=== PATIENT | male | born 1940 | race Caucasian/White ===

== ENCOUNTER 2019-06-18 01:57 | Inpatient (IN) | payer MEDICARE ==
[2019-06-18 02:40] LABS: #Lymphocytes 0.6 thou/uL (1.20-3.40); #Neutrophils 9.4 thou/uL (1.40-6.50); %Basophils 0.1 % (0.0-1.0); %Eosinophils 0.2 % (0.0-10.0); %Lymphocytes 5.6 % (21.0-51.0); %Monocytes 9.2 % (0.0-10.0); %Neutrophils 84.8 % (42.0-75.0); Hemoglobin 11.1 g/dL (14.0-18.0); Mean Corpuscular HGB CONC 33.5 g/dL (32.0-36.0); Mean Corpuscular Hemoglobin 30.5 pg (27.0-31.0); Mean Corpuscular Volume 91.3 fL (78.0-98.0); Mean Platelet Volume 6.9 fL (7.4-10.4); Platelet Count 307 thou/uL (130-400); RBC Distribution Width 13.2 % (11.5-14.5); Red Blood Cell (RBC) Count 3.64 mill/uL (4.70-6.10)
[2019-06-18 03:01] LABS: ALT (SGPT) 26 U/L (8-55); AST (SGOT) 28 U/L (5-34); Albumin 3.5 g/dL (3.4-4.8); Alkaline Phosphatase 117 U/L (40-110); Anion Gap 14 mmol/L (10-20); BUN (Urea Nitrogen) 16 mg/dL (8.4-25.7); Calc. Creatinine Clearance 0 mL/min (70-130); Calcium 7.7 mg/dL (7.8-10.44); Carbon Dioxide 19 mmol/L (23-31); Chloride 105 mmol/L (98-107); Estimated GFR-MDRD 71; Globulin 2.5 g/dL (2.4-3.5); Glucose 114 mg/dL (83-110); Sodium 134 mmol/L (136-145)
[2019-06-18 03:23] LABS: CKMB 1.6 ng/mL (0-6.6)
[2019-06-18] MEDS ORDERED: Acetaminophen 325 MG TAB PO PRN (03:37)
[2019-06-18 04:18] LABS: INR-International Normal Ratio 2.1; Prothrombin Time 23.3 SEC (12.0-14.7)
[2019-06-18 04:41] LABS: Troponin I 0.057 ng/mL (< 0.028)
--- NOTE | 2019-06-18 05:57 | HP ---
CHIEF COMPLAINT: Shortness of breath. HISTORY OF PRESENT ILLNESS: Mr. Sainz is a 79-year-old male with past medical history of atrial fibrillation on warfarin, hypertension, hyperlipidemia, GERD, among others, presents to the emergency room with shortness of breath and generalized weakness. The patient has been feeling weak for the last week. Today, he started feeling short of breath. EMS reported the patient was in atrial fibrillation with RVR with low oxygen saturation. The patient is started on a Cardizem drip en route. The patient denies fever or chills. Heart rate was reported as high as in the 160s. Currently, heart rate is between 90 to the low 100s. BNP is 185. Troponin 0.04. The patient denies chest pain. The patient is being admitted to the hospital for further management. PAST MEDICAL HISTORY: As mentioned above in the history of present illness. PAST SURGICAL HISTORY: 1. Tonsillectomy. 2. Hernia repair. 3. Hip replacement. SOCIAL HISTORY: Patient drinks socially. Has no smoking history. FAMILY HISTORY: Reviewed and noncontributory. HOME MEDICATIONS: Please see home medication reconciliation form for updated medications. ALLERGIES: NO KNOWN ALLERGIES. REVIEW OF SYSTEMS: Review of 14 systems negative except what is mentioned in the history of present illness. PHYSICAL EXAMINATION: GENERAL: The patient is awake, alert, does not appear to be in acute distress. VITAL SIGNS: Blood pressure is 113/69, pulse is 105, respiratory rate is 22, oxygen saturations 96% on 2 L/minute nasal cannula, temperature is 99.6. HEAD AND NECK: Normocephalic, atraumatic. Neck is supple. No JVD. CHEST: Fair bilateral entry. HEART: Irregularly irregular. ABDOMEN: Soft, nontender. Bowel sounds present. NEUROLOGIC: Awake, alert, oriented x3. PSYCHIATRY: Normal mood. EXTREMITIES: No clubbing, no cyanosis. GENITOURINARY: No suprapubic tenderness. No flank tenderness. LABORATORY DATA: Troponin 0.04. BNP is 285. Sodium is 134, potassium is 4.0, creatinine is 1.0. WBC is 11, hemoglobin 11.1, platelets 307. ASSESSMENT: 1. Atrial fibrillation with rapid ventricular response. 2. Acute shortness of breath. 3. Anticoagulated on warfarin. 4. Hypertension. 5. Hyperlipidemia. PLAN: 1. Admit. 2. Telemetry monitoring. 3. 2D echo. 4. Serial troponins. 5. Continue with IV diltiazem drip. 6. Consult Cardiology in a.m. for evaluation and further recommendations. 7. Continue home anticoagulant, will check the patient's INR, to follow the results. 8. Reconcile home medications. 9. DVT prophylaxis as appropriate. 10. Expected length of stay 2 midnights or more. Job ID: [id number]
[2019-06-18 06:03] VITALS: BMI 32.5
[2019-06-18] MEDS ORDERED: HYDROcodone/Acetaminophen 10/325 mg Tablet PO PRN ×2 (07:13→12:45)
[2019-06-18 07:30] LABS: Troponin I 0.101 ng/mL (< 0.028)
[2019-06-18] MEDS ORDERED: Enoxaparin Sodium 100 MG/ML SYRINGE SC SCH (09:00)
[2019-06-18] MEDS ORDERED: Aspirin 325 mg Enteric Coated Tablet PO SCH (09:00)
[2019-06-18] MEDS ORDERED: Amlodipine 5 MG TAB PO SCH (09:00)
[2019-06-18] MEDS ORDERED: Enoxaparin Sodium 80 MG/0.8 ML SYRINGE SC SCH (09:00)
--- NOTE | 2019-06-18 09:15 | RAD ---
Chest one view HISTORY: Dyspnea. COMPARISON: 05/27/2019. FINDINGS: Cardiac silhouette is magnified and enlarged. Pulmonary vasculature is now engorged with pr ominent widespread reticulonodular interstitial thickening. Blunting of each costophrenic angle. Mediastinum is rotated leftward with the patient. No lobar consolidation or evidence of pneumothorax. Defibrillator patch overlies the right upper ches t. IMPRESSION: Pulmonary vascular congestion, cardiomegaly, and small bilateral pleural effusions. Consi mary CHF.
[2019-06-18] MEDS: Atorvastatin Calcium 20 MG TAB PO SCH (09:28)
[2019-06-18] MEDS: Famotidine/PF 20 mg/2ml Vial SLOW IVP SCH ×2 (09:28→19:56)
--- NOTE | 2019-06-18 12:15 | PDOC.HOSPP ---
- Subjective Encounter Date: 06/18/19 Encounter Time: 09:00 Subjective: no c/o chest pain or palpitations at rest has sob on min exertion - Objective Vital Signs & Weight: Vital Signs (12 hours) Temp Pulse Resp BP BP Pulse Ox 06/18/19 09:28 92 144/72 H 06/18/19 08:00 97.6 F 92 20 144/72 H 97 06/18/19 06:51 98 137/58 L 144/70 H 06/18/19 05:55 98.6 F 77 19 137/58 L 97 Weight Weight 220 lb I&O: 06/17/19 06/18/19 06/19/19 06:59 06:59 06:59 Intake Total 130 Output Total 800 Balance -670 Result Diagrams: 06/18/19 02:31 06/18/19 02:31 Hospitalist ROS - Medication Medications: Active Medications Generic Name Dose Route Start Last Admin Trade Name Freq PRN Reason Stop Dose Admin Amlodipine Besylate 5 mg 06/18/19 09:00 06/18/19 09:28 Norvasc PO 5 mg DAILY PAL Administration Atorvastatin Calcium 20 mg 06/18/19 09:00 06/18/19 09:28 Lipitor PO 20 mg DAILY PAL Administration Famotidine 20 mg 06/18/19 09:00 06/18/19 09:28 Pepcid SLOW IVP 20 mg Q12HR PAL Administration Metoprolol Succinate 100 mg 06/18/19 09:00 06/18/19 09:28 Toprol Xl PO 100 mg DAILY PAL Administration Pantoprazole Sodium 40 mg 06/18/19 09:00 06/18/19 09:28 Protonix PO 40 mg DAILY PAL Administration Sodium Chloride 10 ml 06/18/19 09:00 06/18/19 09:28 Flush - Normal Saline IVF 10 ml Q12HR PAL Administration - Exam General Appearance: awake alert Eye: PERRL, anicteric sclera ENT: no oropharyngeal lesions, moist mucosa Neck: supple, no JVD Heart: no murmur, irregular Respiratory: no wheezes, no ronchi, rales Gastrointestinal: soft, non-tender, non-distended, normal bowel sounds Extremities: no cyanosis, no edema Neurological: cranial nerve grossly intact, no focal deficits Psychiatric: normal affect, A&O x 3 Hosp A/P (1) Atrial fibrillation with RVR Code(s): I48.91 - UNSPECIFIED ATRIAL FIBRILLATION Status: Acute (2) HTN (hypertension) Code(s): I10 - ESSENTIAL (PRIMARY) HYPERTENSION Status: Chronic Qualifiers: Hypertension type: essential hypertension Qualified Code(s): I10 - Essential (primary) hypertension (3) Dyslipidemia Code(s): E78.5 - HYPERLIPIDEMIA, UNSPECIFIED Status: Chronic - Plan has chronic h/o afib and sees Dr.Jeremiah Lora in [place] per patient last stress test was in october of 2018 and was normal per patient is currently on cardizem drip continue home dose toprol xl, norvasc and lipitor echo is pending hemostable cardiology consultation
[2019-06-18] MEDS: HYDROcodone/Acetaminophen 10/325 mg Tablet PO PRN (12:35)
[2019-06-18] MEDS: Warfarin Sodium 3 MG TAB PO SCH (17:27)
[2019-06-18] MEDS ORDERED: Furosemide 40 MG/4 ML VIAL ONE (19:44)
[2019-06-18] MEDS: traZODone HCl 50 MG TAB PO PRN (19:55)
[2019-06-19] MEDS: HYDROcodone/Acetaminophen 10/325 mg Tablet PO PRN (03:45)
[2019-06-19 04:41] LABS: #Eosinphils 0.1 thou/uL (0.0-0.7); #Monocytes 1.2 thou/uL (0.11-0.59); #Neutrophils 8.7 thou/uL (1.40-6.50); %Basophils 0.1 % (0.0-1.0); %Eosinophils 0.8 % (0.0-10.0); %Lymphocytes 9.3 % (21.0-51.0); %Monocytes 11.2 % (0.0-10.0); %Neutrophils 78.6 % (42.0-75.0); Mean Corpuscular Hemoglobin 30.7 pg (27.0-31.0); Mean Corpuscular Volume 92.9 fL (78.0-98.0); Mean Platelet Volume 7.2 fL (7.4-10.4); Platelet Count 321 thou/uL (130-400); RBC Distribution Width 13.2 % (11.5-14.5); Red Blood Cell (RBC) Count 3.58 mill/uL (4.70-6.10); White Blood Cell (WBC) Count 11.1 thou/uL (4.8-10.8)
[2019-06-19 04:46] LABS: INR-International Normal Ratio 1.7; Prothrombin Time 20.1 SEC (12.0-14.7)
[2019-06-19 05:02] LABS: Anion Gap 14 mmol/L (10-20); BUN (Urea Nitrogen) 14 mg/dL (8.4-25.7); Calc. Creatinine Clearance 103 mL/min (70-130); Calcium 8.3 mg/dL (7.8-10.44); Carbon Dioxide 20 mmol/L (23-31); Chloride 103 mmol/L (98-107); Estimated GFR-MDRD 87; Glucose 113 mg/dL (83-110); Potassium 3.7 mmol/L (3.5-5.1); Sodium 133 mmol/L (136-145)
[2019-06-19] MEDS: Atorvastatin Calcium 20 MG TAB PO SCH (09:19)
[2019-06-19] MEDS: Aspirin 81 mg Enteric Coated Tablet PO SCH (09:26)
[2019-06-19] MEDS ORDERED: Magnesium 2 GM/50 ML 2 GM in Premix Bag 1 BAG IVPB SCH (11:30)
--- NOTE | 2019-06-19 13:57 | PRG ---
DATE OF SERVICE: 06/19/2019 SUBJECTIVE: Mr. Sainz is doing better. His heart rate appears to be better controlled. He is on 5 mg of IV Cardizem. He is placed on p.o. Cardizem yesterday in addition of metoprolol. OBJECTIVE: GENERAL: Patient is a pleasant male who is in no acute distress. The patient appears their stated age. VITAL SIGNS: Heart rate 99, blood pressure 144/76, and respirations 20. NEUROLOGIC: The patient is alert and oriented x3 with no focal neurologic deficits. HEENT: Sclerae without icterus. Mouth has moist mucous membranes with normal pallor. NECK: No JVD. Carotid upstroke brisk. No bruits bilaterally. LUNGS: Clear to auscultation with unlabored respirations. BACK: No scoliosis or kyphosis. CARDIAC: Irregularly irregular. ABDOMEN: Soft, nontender, nondistended. No peritoneal signs present. No hepatosplenomegaly. No abnormal striae. EXTREMITIES: 2+ femoral and 2+ dorsalis pedis pulses. No cyanosis, clubbing, or edema. SKIN: No gross abnormalities. PERTINENT LABS: As above. IMPRESSION: 1. Atrial fibrillation with rapid ventricular response. 2. Ewzasort-tk-hjlxvf mitral regurgitation. RECOMMENDATIONS: 1. After reviewing Mr. Sainz' previous records, he appears to have mild MR previously. This is likely due to volume. He will receive Lasix. He appears to have urriccxw-is-vlmfef MR on recent echo. His left atrium appears enlarged. 2. At this point, we will continue with rate control. We will increase p.o. Cardizem to try and decrease IV Cardizem. Given his left atrial size and the fact he has been atrial fibrillation for years, it is unlikely cardioversion be successful. We will continue to monitor with you. Job ID: [id number]
--- NOTE | 2019-06-19 14:09 | CON ---
DATE OF CONSULTATION: 06/18/2019 REASON FOR CONSULTATION: Atrial fibrillation. HISTORY OF PRESENT ILLNESS: Mr. Sainz is a very pleasant 79-year-old gentleman, who recently presented with atrial fibrillation with RVR. He also was found to be in congestive heart failure. He had a full workup at the [facility]. Records have been reviewed. He has bvfm-hc-ilokhvps coronary artery disease. Most risk significant lesion estimated at 60% within the LAD. FFR was estimated at 0.85. He states he has had increased palpitations. He states his beta-tigre was recently changed and attributes the change in beta-tigre therapy to his device. No chest pain or pressure noted. PAST MEDICAL HISTORY: As above including tonsillectomy, hip replacement, and hernia repair. SOCIAL HISTORY: Positive alcohol use. No tobacco use. ALLERGIES: NONE. REVIEW OF SYSTEMS: A 10-point review of systems is reviewed as above, otherwise negative. HOME MEDICATIONS: Include; 1. Norvasc. 2. Omeprazole. 3. Metoprolol. 4. Coumadin. 5. Atorvastatin. 6. Hydrocodone. 7. Trazodone. PHYSICAL EXAMINATION: VITAL SIGNS: Current blood pressure 112/59, pulse 91, and respirations 20. GENERAL: The patient is a pleasant gentleman, in no acute distress, appears stated age. HEAD, EYES, EARS, NOSE AND THROAT: Sclerae without icterus. Mouth: Moist mucous membranes, normal palate. NECK: No jugular venous distention. Carotid upstroke is brisk. No bruits bilaterally. LUNGS: Clear to auscultation. HEART: Irregularly irregular. ABDOMEN: Soft, nontender, nondistended. EXTREMITIES: No edema. PERTINENT LABORATORY DATA: Hemoglobin 11, hematocrit 33.3, white blood cell count 11.1, and creatinine 0.5. BNP of 285. IMPRESSION: 1. Atrial fibrillation with rapid ventricular response. 2. Ugtg-af-mdrgfntw coronary artery disease with angio performed on 05/2019. RECOMMENDATIONS: 1. I have added Cardizem p.o. q.8 hours in addition to IV Cardizem. 2. Add digoxin. 3. Continue aspirin in addition to atorvastatin. 4. Discontinue enoxaparin. 5. Continue metoprolol. Job ID: [id number]
--- NOTE | 2019-06-19 16:59 | PDOC.HOSPP ---
- Subjective Encounter Date: 06/19/19 Encounter Time: 14:00 Subjective: Patient seen and examined for Afib with RVR. SOB on mild exertion. No CP. No new complaints. No overnight events - Objective Vital Signs & Weight: Vital Signs (12 hours) Temp Pulse Resp BP Pulse Ox 06/19/19 16:00 99.5 F 86 18 114/65 93 L 06/19/19 12:00 98.1 F 94 15 126/67 94 L 06/19/19 08:00 98.2 F 100 16 122/65 92 L Weight Weight 220 lb I&O: 06/18/19 06/19/19 06/20/19 06:59 06:59 06:59 Intake Total 860 Output Total 2150 Balance -1290 Result Diagrams: 06/19/19 04:15 06/19/19 04:15 Radiology Reviewed by me: Yes (CXR - CHF) EKG Reviewed by me: Yes (Tele Afib with RVR) Hospitalist ROS - Review of Systems Respiratory: reports: cough, dry, shortness of breath, SOB with excertion. denies: hemoptysis, pleuritic pain, sputum, wheezing, other Cardiovascular: denies: chest pain, palpitations, orthopnea, paroxysmal noc. dyspnea, edema, light headedness, other Gastrointestinal: denies: nausea, vomiting, abdominal pain, diarrhea, constipation, melena, hematochezia, other - Medication Medications: Active Medications Generic Name Dose Route Start Last Admin Trade Name Freq PRN Reason Stop Dose Admin Hydrocodone Bitart/Acetaminophen 1 tab 06/18/19 12:33 06/19/19 03:45 [place] 10/325 PO 1 tab BIDPRN PRN Administration Pain Aspirin 81 mg 06/19/19 09:00 06/19/19 09:26 Ecotrin PO 81 mg DAILY PAL Administration Atorvastatin Calcium 20 mg 06/18/19 09:00 06/19/19 09:19 Lipitor PO 20 mg DAILY PAL Administration Diltiazem HCl 90 mg 06/19/19 14:00 06/19/19 14:27 Cardizem PO 90 mg Q8HR PAL Administration Metoprolol Succinate 100 mg 06/18/19 09:00 06/19/19 09:19 Toprol Xl PO 100 mg DAILY PAL Administration Pantoprazole Sodium 40 mg 06/18/19 09:00 06/19/19 09:19 Protonix PO 40 mg DAILY PAL Administration Sodium Chloride 10 ml 06/18/19 09:00 06/19/19 09:20 Flush - Normal Saline IVF 10 ml Q12HR PAL Administration Trazodone HCl 100 mg 06/18/19 19:41 06/18/19 19:55 Desyrel PO 100 mg HS PRN Administration Insomnia Warfarin Sodium 6 mg 06/18/19 17:00 06/18/19 17:27 Coumadin PO 6 mg 1700 PAL Administration - Exam General Appearance: NAD Heart: no gallops, no rubs, normal peripheral pulses, irregular Respiratory: no wheezes, no rales, normal chest expansion, rhonchi Gastrointestinal: non-tender, non-distended, normal bowel sounds, no guarding, no rigidity Neurological: no new deficit Psychiatric: normal affect, A&O x 3 Hosp A/P - Plan DVT proph w/SCDs Afib with RVR Acute on chronic diastolic HF 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 DPOA - self/family
[2019-06-19] MEDS ORDERED: Furosemide 20 MG/2 ML VIAL SLOW IVP SCH (17:00)
[2019-06-19] MEDS: Warfarin Sodium 3 MG TAB PO SCH (17:37)
[2019-06-19] MEDS: traZODone HCl 50 MG TAB PO PRN (20:42)
[2019-06-20] MEDS: HYDROcodone/Acetaminophen 10/325 mg Tablet PO PRN (01:25)
[2019-06-20 04:32] LABS: INR-International Normal Ratio 2.2; Prothrombin Time 24.3 SEC (12.0-14.7)
[2019-06-20] MEDS: Furosemide 20 MG/2 ML VIAL SLOW IVP SCH ×2 (06:06→14:25)
[2019-06-20 06:46] LABS: #Basophils 0.1 thou/uL (0.0-0.2); #Eosinphils 0.2 thou/uL (0.0-0.7); #Lymphocytes 0.9 thou/uL (1.20-3.40); #Neutrophils 7.4 thou/uL (1.40-6.50); %Basophils 0.6 % (0.0-1.0); %Eosinophils 2.4 % (0.0-10.0); %Lymphocytes 9.5 % (21.0-51.0); %Monocytes 10.6 % (0.0-10.0); %Neutrophils 76.8 % (42.0-75.0); Hemoglobin 10.8 g/dL (14.0-18.0); Mean Corpuscular HGB CONC 32.7 g/dL (32.0-36.0); Mean Corpuscular Hemoglobin 30.8 pg (27.0-31.0); Mean Corpuscular Volume 94.3 fL (78.0-98.0); Mean Platelet Volume 7.2 fL (7.4-10.4); Platelet Count 297 thou/uL (130-400); RBC Distribution Width 13.4 % (11.5-14.5); Red Blood Cell (RBC) Count 3.49 mill/uL (4.70-6.10); White Blood Cell (WBC) Count 9.6 thou/uL (4.8-10.8)
[2019-06-20 06:54] LABS: Anion Gap 12 mmol/L (10-20); BUN (Urea Nitrogen) 13 mg/dL (8.4-25.7); Calc. Creatinine Clearance 112 mL/min (70-130); Calcium 8.1 mg/dL (7.8-10.44); Carbon Dioxide 22 mmol/L (23-31); Chloride 104 mmol/L (98-107); Estimated GFR-MDRD Greater than 90; Glucose 105 mg/dL (83-110); Magnesium 2.3 mg/dL (1.6-2.6); Potassium 3.4 mmol/L (3.5-5.1); Sodium 135 mmol/L (136-145)
[2019-06-20] MEDS ORDERED: Potassium Chloride 20 MEQ TAB PO SCH ×3 (08:00→21:00)
[2019-06-20] MEDS: Atorvastatin Calcium 20 MG TAB PO SCH (09:40)
[2019-06-20] MEDS: Aspirin 81 mg Enteric Coated Tablet PO SCH (09:40)
[2019-06-20] MEDS: Diltiazem HCl 125 MG, Admixture Fee 1 EACH in Sodium Chloride 0.9% 100 ML IVPB SCH (12:01)
[2019-06-20] MEDS: Warfarin Sodium 3 MG TAB PO SCH (17:51)
--- NOTE | 2019-06-20 18:17 | PRG ---
DATE OF SERVICE: 06/20/2019 HISTORY OF PRESENT ILLNESS: Mr. Sainz feels better. Less shortness of breath. Heart rate continues to be elevated, although better. He continues to be on IV Cardizem. PHYSICAL EXAMINATION: VITAL SIGNS: Blood pressure 100/57, pulse 93, and temperature 98.6. LUNGS: Clear to auscultation. HEART: Irregularly irregular. ABDOMEN: Soft, nontender, and nondistended. EXTREMITIES: No edema. PERTINENT LABORATORY DATA: Hemoglobin 8.6. Creatinine 0.78. IMPRESSION: 1. Atrial fibrillation. 2. Yiboxyge-jt-tibfzg mitral regurgitation. 3. Mild aortic stenosis. RECOMMENDATIONS: Mr. Sainz atrial fibrillation is chronic. We will continue to up-titrate his p.o. Cardizem. I have increased his Cardizem to 90 mg one p.o. q.6 hours. We will also load with digoxin. Continue metoprolol at the current dose and can increase if needed. If continued difficulty with management, may consider EP consultation. Part of the issue as far as atrial fibrillation is concerned is his valve. He may need to have a more aggressive approach to his valve such as a mitral valve replacement versus clip versus repair. Job ID: [id number]
[2019-06-20] MEDS: Digoxin 0.25 MG TAB PO SCH (18:20)
--- NOTE | 2019-06-20 18:39 | PDOC.HOSPP ---
- Subjective Encounter Date: 06/20/19 Encounter Time: 17:00 Subjective: Patient seen and examined for Afib with RVR. No CP. On Cardizem drip SOB improving. No new complaints. No overnight events - Objective Vital Signs & Weight: Vital Signs (12 hours) Temp Pulse Resp BP Pulse Ox 06/20/19 18:20 83 06/20/19 16:10 98.6 F 93 18 100/57 L 90 L 06/20/19 16:00 98.6 F 93 16 100/57 L 96 06/20/19 14:04 98.3 F 101 H 18 132/61 97 06/20/19 12:00 98.3 F 101 H 16 132/61 97 06/20/19 08:00 98.9 F 95 16 120/65 94 L Weight Weight 220 lb I&O: 06/19/19 06/20/19 06/21/19 06:59 06:59 06:59 Intake Total 860 1090 Output Total 2150 950 800 Balance -1290 140 -800 Result Diagrams: 06/20/19 06:13 06/20/19 06:13 EKG Reviewed by me: Yes (Tele Afib - rate controlled) Hospitalist ROS - Review of Systems Respiratory: reports: SOB with excertion. denies: cough, dry, shortness of breath, hemoptysis, pleuritic pain, sputum, wheezing, other Cardiovascular: denies: chest pain, palpitations, orthopnea, paroxysmal noc. dyspnea, edema, light headedness, other Gastrointestinal: denies: nausea, vomiting, abdominal pain, diarrhea, constipation, melena, hematochezia, other - Medication Medications: Active Medications Generic Name Dose Route Start Last Admin Trade Name Freq PRN Reason Stop Dose Admin Hydrocodone Bitart/Acetaminophen 1 tab 06/18/19 12:33 06/20/19 01:25 [place] 10/325 PO 1 tab BIDPRN PRN Administration Pain Aspirin 81 mg 06/19/19 09:00 06/20/19 09:40 Ecotrin PO 81 mg DAILY PAL Administration Atorvastatin Calcium 20 mg 06/18/19 09:00 06/20/19 09:40 Lipitor PO 20 mg DAILY PAL Administration Digoxin 0.25 mg 06/20/19 18:00 06/20/19 18:20 Lanoxin PO 06/21/19 12:01 0.25 mg Q6HR PAL Administration Diltiazem HCl 90 mg 06/20/19 18:00 06/20/19 18:20 Cardizem PO 90 mg Q6HR PAL Administration Furosemide 20 mg 06/20/19 06:00 06/20/19 14:25 Lasix SLOW IVP 20 mg 0600,1400 PAL Administration Diltiazem HCl 125 mg/ 125 mls @ 5 mls/hr 06/18/19 02:30 06/20/19 12:01 Miscellaneous Medication 1 IVPB 125 mls each/ Sodium Chloride INF PAL Administration Protocol Metoprolol Succinate 100 mg 06/18/19 09:00 06/20/19 09:40 Toprol Xl PO 100 mg DAILY PAL Administration Pantoprazole Sodium 40 mg 06/18/19 09:00 06/20/19 09:40 Protonix PO 40 mg DAILY PAL Administration Sodium Chloride 10 ml 06/18/19 09:00 06/20/19 09:40 Flush - Normal Saline IVF 10 ml Q12HR PAL Administration Trazodone HCl 100 mg 06/18/19 19:41 06/19/19 20:42 Desyrel PO 100 mg HS PRN Administration Insomnia Warfarin Sodium 6 mg 06/18/19 17:00 06/20/19 17:51 Coumadin PO 6 mg 1700 PAL Administration - Exam General Appearance: NAD General - other findings: On Cardizem drip Heart: no gallops, no rubs, irregular Respiratory: no wheezes, no rales, rhonchi Gastrointestinal: non-tender, non-distended, normal bowel sounds Extremities: no cyanosis, no clubbing Psychiatric: normal affect, A&O x 3 Hosp A/P - Plan Afib with RVR - on Cardizem drip/Digoxin Acute on chronic diastolic HF - improving Mod-sev MR HTN HLD Obesity BMI 32.5 Hypokalemia Hypomagnesemia - replaced PLAN: Cont Cardizem drip with PO Cardizem Cont IV Lasix with fluid rest Replace Potassium Cont Warfarin Daily INR/BMP Cont other meds Transfer to [facility] due to insurance reason - Forms completed. Bed not available
[2019-06-20] MEDS: traZODone HCl 50 MG TAB PO PRN (19:57)
[2019-06-21] MEDS: Digoxin 0.25 MG TAB PO SCH ×3 (00:17→12:49)
[2019-06-21] MEDS: HYDROcodone/Acetaminophen 10/325 mg Tablet PO PRN (00:19)
[2019-06-21 04:40] LABS: INR-International Normal Ratio 2.2; Prothrombin Time 23.9 SEC (12.0-14.7)
[2019-06-21 04:57] LABS: Anion Gap 13 mmol/L (10-20); BUN (Urea Nitrogen) 15 mg/dL (8.4-25.7); Calc. Creatinine Clearance 100 mL/min (70-130); Carbon Dioxide 21 mmol/L (23-31); Chloride 103 mmol/L (98-107); Estimated GFR-MDRD 85; Glucose 98 mg/dL (83-110); Magnesium 1.9 mg/dL (1.6-2.6); Potassium 3.5 mmol/L (3.5-5.1); Sodium 133 mmol/L (136-145)
[2019-06-21] MEDS: Furosemide 20 MG/2 ML VIAL SLOW IVP SCH ×2 (05:48→14:10)
[2019-06-21] MEDS: Aspirin 81 mg Enteric Coated Tablet PO SCH (09:20)
[2019-06-21] MEDS: Atorvastatin Calcium 20 MG TAB PO SCH (09:21)
[2019-06-21] MEDS: Diltiazem HCl 125 MG, Admixture Fee 1 EACH in Sodium Chloride 0.9% 100 ML IVPB SCH (12:53)
[2019-06-21] MEDS ORDERED: Potassium Chloride 20 MEQ TAB PO SCH (16:00)
[2019-06-21 16:09] VITALS: BP 113/72; TEMP 98.9
[2019-06-21] MEDS: Warfarin Sodium 3 MG TAB PO SCH (17:55)
--- NOTE | 2019-06-22 06:13 | PDOC.CPN ---
- Subjective Date: 06/21/19 Time: 16:10 Interval history: Patient without complaints. AF with improved rate-control, but still intermittent RVR. - Review of Systems General: denies: fever/chills, weight/appetite/sleep changes, night sweats, fatigue Respiratory: denies: cough, congestion, shortness of breath, exercise intolerance Cardiovascular: denies: chest pain, palpitation, edema, paroxysmal nocturnal dyspnea, orthopnea Gastrointestinal: denies: nausea, vomiting, diarrhea, constipation, abd pain, GI bleeding Musculoskeletal: denies: pain, tenderness, stiffness, swelling, arthritis/ arthralgias Neurological: denies: numbness, syncope, seizure, weakness - Objective Allergies/Adverse Reactions: Allergies Allergy/AdvReac Type Severity Reaction Status Date / Time No Known Drug Allergies Allergy Verified 06/18/19 06:23 Vital Signs & Weight: Weight 212 lb 12.8 oz - Physical Exam General: alert & oriented x3, appears well, no apparent distress HEENT: mucus membranes moist Neck: supple neck Cardiac: other (IRR IRR) Lungs: clear to auscultation, normal breath sounds Neuro: grossly intact Abdomen: soft, non-tender Extremities: no cyanosis Musculoskeletal: normal range of motion - Labs Result Diagrams: 06/20/19 06:13 06/21/19 04:19 Troponin/CKMB CK-MB (CK-2) 1.6 ng/mL (0-6.6) 06/18/19 02:31 Troponin I 0.101 ng/mL (< 0.028) H 06/18/19 06:41 - Assessment/Plan Assessment/Plan: 1. Persistent AF Still with intermittent RVR. On cardizem gtt at 5. PO cardizem and Toprol on board. Patient started on Digoxin in last 48 hours. Will add Dig 0.125mg once daily starting tomorrow. Hopefully home soon.
--- NOTE | 2019-06-22 08:00 | DIS ---
DATE OF ADMISSION: 06/18/2019 DATE OF DISCHARGE: 06/21/2019 DISCHARGE DISPOSITION: The patient will be transferred to [facility] due to insurance reason. DISCHARGE MEDICATIONS: 1. Cardizem drip at 5 mg/hour. 2. Cardizem 90 mg q.6 hourly. 3. Aspirin 81 mg daily. 4. Digoxin 0.125 mg daily. 5. Lasix 20 mg daily. 6. Potassium 20 mEq daily. 7. Warfarin 6 mg daily. 8. Trazodone 100 mg at bedtime p.r.n. 9. Omeprazole 40 mg daily. 10. Toprol-XL 100 mg daily. 11. [place] as needed. 12. Lipitor 20 mg daily. INPATIENT CONSULT: Cardiology, Dr. Ashton. The patient was seen and examined on the day of discharge (June,). His vital signs today showed temperature 98.2, pulse rate of 84, respirations of 18, blood pressure of 124/64, O2 saturation 98% on room air. Weight on the day of discharge is 212 pounds, on admission was 220 pounds. SIGNIFICANT LABORATORY DATA: Sodium 133, potassium 3.5, chloride 103, bicarb 21, BUN 15, and creatinine 0.87. Maximum troponin was 0.101. BNP was 285. Chest x-ray on admission showed pulmonary vascular congestion, cardiomegaly with small bilateral pleural effusion. Echocardiogram showed left ventricular ejection fraction of 50% to 55% with lzngfhmt-xv-elsghj mitral regurgitation, xtkz-ys-bguoxgln aortic regurgitation, atdi-re-csbzbodn tricuspid regurgitation, mildly elevated pulmonary artery pressure. There was also moderately thickened aortic valve. Please note that the patient recently had an echo at [facility] that showed ejection fraction around 43%. BRIEF HOSPITAL COURSE: The patient is a 79-year-old male with past medical history of atrial fibrillation on warfarin, hypertension, hyperlipidemia, presented to the emergency room with shortness of breath. His workup was consistent with atrial fibrillation with rapid ventricular response along with congestive heart failure exacerbation. He was started on Cardizem drip along with gentle diuretics. Shortness of breath has significantly improved. His heart rate is controlled at this time. He still, however, is on Cardizem drip. He was evaluated by Cardiology, Dr. Ashton, who started digoxin along with oral Cardizem 90 mg q.6 hourly. Lasix has been changed to oral. He also had some electrolyte imbalance, which were replaced. Due to insurance reason, the patient will be transferred to [facility]. FINAL DIAGNOSES: 1. Atrial fibrillation with rapid ventricular response. 2. Acute on chronic diastolic heart failure. Please note that recent echo at [facility] showed ejection fraction 43%. 3. Ytuwdzvb-sy-dtlyip mitral regurgitation. 4. Hypertension. 5. Hyperlipidemia. 6. Obesity with a BMI of 32.5. 7. Hypokalemia, replaced. 8. Hypomagnesemia, replaced. 9. Hyponatremia. 10. Mild aortic stenosis. 11. Chronic anticoagulation. INR on the day of discharge is 2.2. The patient understands the above plan of care. Job ID: [id number]
[2019-06-22] MEDS ORDERED: Furosemide 20 MG TAB PO SCH (09:00)
[2019-06-22] MEDS ORDERED: Digoxin 0.125 MG TAB PO SCH (09:00)
--- NOTE | 2019-06-24 13:11 | EKG ---
Test Reason : A FIB RVR Blood Pressure : / mmHG Vent. Rate : 128 BPM Atrial Rate : 108 BPM P-R Int : 000 ms QRS Dur : 132 ms QT Int : 330 ms P-R-T Axes : 000 -58 105 degrees QTc Int : 481 ms Atrial fibrillation with rapid ventricular response with premature ventricular or aberrantly conducte d complexes Left axis deviation Left ventricular hypertrophy with QRS widening T wave abnormality, consider lateral ischemia or digitalis effect Abnormal ECG Confirmed by FARZAD PERRY ([id number]), desk editor LETITIA GARCIA ([id number] on 06/24/2019 1:11:46 PM Referred By: Confirmed By:FARZAD PERRY
== END 2019-06-21 19:25 | disposition short-term general hospital (02) | DRG 308 ==
LOC: ERS 01:57 → 2NO 03:47
PROVIDERS: ADMIT Internal Medicine; ATTEND Internal Medicine
DX: I48.19 Other persistent atrial fibrillation (principal); I50.33 Acute on chronic diastolic (congestive) heart failure; E87.1 Hypo-osmolality and hyponatremia; I10 Essential (primary) hypertension; K21.9 Gastro-esophageal reflux disease without esophagitis; E78.00 Pure hypercholesterolemia, unspecified; Z96.641 Presence of right artificial hip joint; E78.5 Hyperlipidemia, unspecified; E66.9 Obesity, unspecified; E83.42 Hypomagnesemia; E87.6 Hypokalemia; I08.3 Combined rheumatic disorders of mitral, aortic and tricuspid valves; Z68.32 Body mass index [BMI] 32.0-32.9, adult; Z79.01 Long term (current) use of anticoagulants
CPT/HCPCS: 36415; 71045; 80048; 80053; 82553; 83735; 83880; 84484; 85025; 85610; 93005; 93306; 93798; 96365; 96366; J1940; J3475; J3490; S0028

== ENCOUNTER 2020-05-13 20:47 | Inpatient (IN) | payer MEDICARE ==
[~2020-05-13 20:47] MED LIST: Iopamidol-370 76% 500 ML 1 ML ONE
[2020-05-13] MEDS ORDERED: Magnesium 2 GM/50 ML BAG (IN WATER) ONE (21:07)
[2020-05-13] MEDS ORDERED: Acetaminophen 500 MG TAB ONE (21:35)
[2020-05-13] MEDS ORDERED: Diltiazem 125 MG/25 ML ONE (21:36)
[2020-05-13 21:37] LABS: Bilirubin Negative (Negative); Blood, Urine Negative (Negative); Clarity Clear (Clear); Glucose, Urine (Dipstick) Normal (Negative); Ketone, Urine Trace mg/dL (Negative); Leukocyte Negative Leu/uL (Negative); Nitrite Negative (Negative); Protein, Urine (Dipstick) Negative (Neg-Trace); Urobilinogen Normal mg/dL (Less than 2)
[2020-05-13] MEDS ORDERED: cefTRIAXone\\ROCEPHIN 1 GM VIAL ONE (21:38)
[2020-05-13 22:05] LABS: #Lymphocytes 0.4 thou/uL (1.20-3.40); #Monocytes 0.8 thou/uL (0.11-0.59); #Neutrophils 5.8 thou/uL (1.40-6.50); %Basophils 0.3 % (0.0-1.0); %Eosinophils 0.4 % (0.0-10.0); %Lymphocytes 6.3 % (21.0-51.0); %Neutrophils 81.9 % (42.0-75.0); Hemoglobin 9.5 g/dL (14.0-18.0); Mean Corpuscular HGB CONC 32.2 g/dL (32.0-36.0); Mean Corpuscular Hemoglobin 27.9 pg (27.0-31.0); Mean Corpuscular Volume 86.5 fL (78.0-98.0); Mean Platelet Volume 6.5 fL (7.4-10.4); Platelet Count 337 thou/uL (130-400); RBC Distribution Width 13.9 % (11.5-14.5); Red Blood Cell (RBC) Count 3.41 mill/uL (4.70-6.10); White Blood Cell (WBC) Count 7.1 thou/uL (4.8-10.8)
[2020-05-13 22:10] LABS: INR-International Normal Ratio 2.5; Prothrombin Time 27.5 sec (12.0-14.7)
[2020-05-13 22:11] LABS: PTT 53.8 sec (22.9-36.1)
[2020-05-13 22:35] LABS: ALT (SGPT) 19 U/L (8-55); Albumin 3.8 g/dL (3.4-4.8); Alkaline Phosphatase 90 U/L (40-110); Anion Gap 16 mmol/L (10-20); BUN (Urea Nitrogen) 13 mg/dL (8.4-25.7); Bilirubin, Total 0.7 mg/dL (0.2-1.2); Calc. Creatinine Clearance 0 mL/min (70-130); Calcium 8.3 mg/dL (7.8-10.44); Carbon Dioxide 20 mmol/L (23-31); Chloride 98 mmol/L (98-107); Globulin 3.1 g/dL (2.4-3.5); Glucose 96 mg/dL (83-110); Lipase 6 U/L (8-78); Magnesium 2.3 mg/dL (1.6-2.6); Potassium 3.8 mmol/L (3.5-5.1); Protein, Total 6.9 g/dL (5.8-8.1); Sodium 130 mmol/L (136-145)
--- NOTE | 2020-05-13 22:35 | RAD ---
Portable frontal chest radiograph: 05/13/2020 COMPARISON: 06/18/2019 HISTORY: Short of breath FINDINGS: There is enlargement of the cardiac silhouette, stable. There are nonspecific increased janet ear interstitial densities noted bilaterally with a basilar predominance, less conspicuous than on the prior exam. The lungs appear hyperinflated. There is no pneumothorax, lobar consolidation, or eli eolar edema. No large volume pleural effusion. IMPRESSION: Enlarged cardiac silhouette with nonspecific interstitial prominence of uncertain acuity. No lobar consolidation or alveolar edema. A mild degree of interstitial edema or interstitial infectious pneumonitis cannot be excluded.
[2020-05-13 22:41] LABS: SARS-CoV-2 NAA Rapid Test DETECTED (NotDetected)
[2020-05-13 22:46] LABS: CKMB 1.2 ng/mL (0-6.6)
[2020-05-13 22:54] LABS: AST (SGOT) 26 U/L (5-34)
--- NOTE | 2020-05-14 00:03 | CT ---
Head CT without contrast 05/13/2020: Comparison: None HISTORY: Short of breath, confusion, altered mental status TECHNIQUE: Axial CT imaging at 5 mm intervals from vertex through skull base without contrast FINDINGS: The visualized paranasal sinuses and mastoid air cells are well-aerated. No displaced luh rial fracture. No intracranial hemorrhage, midline shift, mass effect, or ventricular enlargement. Mild periventricular hypodensity suggests small vessel disease. IMPRESSION: No intracranial hemorrhage or displaced calvarial fracture.
[2020-05-14] MEDS ORDERED: Vancomycin 1 GM/200 ML BAG ONE (00:24)
[2020-05-14 01:13] LABS: Troponin I 0.056 ng/mL (< 0.028)
[2020-05-14] MEDS ORDERED: Acetaminophen 650 MG Suppository PR PRN (03:14)
[2020-05-14] MEDS ORDERED: Acetaminophen 325 MG TAB PO PRN (03:14)
--- NOTE | 2020-05-14 03:45 | PDOC.HHP ---
Hospitalist HPI History of Present Illness: ADMISSION DATE: 05/14/2020 TIME OF ASSESSMENT:0200 PRIMARY CARE PHYSICIAN: Dr. Burch CHIEF COMPLAINT: Shortness of breath and weakness HPI: This is a 79-year-old gentleman who presents emergency department due to sudden onset weakness while at home making it difficult for him to stand up. His called EMS immediately. The patient states that this happened after taking an evening dose of Lasix. He had been seen by Dr. Burch yesterday morning due to complaints of shortness of breath and was told he was fluid overloaded and advised to take Lasix at morning and again that evening. He states he had been feeling short of breath for the last several days. Denies experiencing any chest pain or palpitations. Denies any cough or hemoptysis. No fevers chills or sweats. ED COURSE: During assessment in the emergency department the patient was reportedly confused and was unable to explain what happened earlier. Did not have any focal deficits on exam. At the moment however the patient is alert and oriented. States he is feeling significantly better than he did when he was at home prior to coming in. He had an EKG done which showed A. fib RVR with a heart rate of 138. He was started on a diltiazem drip at 5 mg/h after receiving a bolus of 15 mg. He had laboratory studies that showed a white cell count of 7, hemoglobin 9.5, hematocrit 29.5, platelets 337, neutrophils 81.9%. Sodium 130, potassium 3.8, BUN 13, creatinine 0.92, GFR 80. Lipase normal. Magnesium 2.3. LFTs normal. BNP was 339.3. Lactic acid 1.6. Urinalysis was unremarkable. A chest x-ray was done and showed an enlarged cardiac silhouette with nonspe cific interstitial prominence of uncertain acuity. No lobar consolidation or alveolar edema. A mild degree of interstitial edema or interstitial infectious pneumonitis was noted. Due to being confused at initial presentation he had a CT of the head done which did not show any acute abnormalities. The patient was tested for Covid and it came back positive. He received 2 L of normal saline due to the tachycardia and concerns for sepsis. He received IV antibiotics with Rocephin and vancomycin. Also given Tylenol 1g. Patient was also given 2 mg of magnesium however did have a normal magnes ium level of 2.3. Allergies/Adverse Reactions: Allergy/AdvReac Type Severity Reaction Status Date / Time No Known Drug Allergies Allergy Verified 06/18/19 06:23 Home Medications: Medication Instructions Recorded Confirmed Type Atorvastatin Calcium [Lipitor] 20 mg PO DAILY 06/18/19 06/18/19 History HYDROcodone/Acetaminophen [Rayne 2 tab PO BID PRN 06/18/19 06/18/19 History 10-325 Tablet] Metoprolol Succinate [Toprol XL] 100 mg PO DAILY 06/18/19 06/18/19 History Omeprazole 40 mg PO DAILY 06/18/19 06/18/19 History Warfarin Sodium [Coumadin] 6 mg PO DAILY 06/18/19 06/18/19 History traZODone HCl [Trazodone HCl] 100 mg PO HS PRN 06/18/19 06/18/19 History Aspirin [Ecotrin Low Strength] 81 mg PO DAILY tab 06/21/19 Rx Digoxin [Lanoxin] 0.125 mg PO DAILY tab 06/21/19 Rx Diltiazem HCl [Cardizem] 90 mg PO Q6HR tab 06/21/19 Rx Furosemide [Lasix] 20 mg PO DAILY tab 06/21/19 Rx Potassium Chloride [K-Dur] 20 meq PO DAILY #7 tab 06/21/19 Rx Past History: PAST MEDICAL HISTORY: 1. GERD 2. Chronic A. fib 3. Hypertension 4. Hyperlipidemia PAST SURGICAL HISTORY: 1. Tonsillectomy 2. Right hip replacement 3. Hernia repair SOCIAL HISTORY: Patient lives with his . He is fully independent at baseline. Does not require oxygen at home. Ports occasional alcohol consumption. Denies any tobacco use or drug use. FAMILY HISTORY: Noncontributory Hospitalist Exam General Appearance: NAD, awake alert General - other findings: VS: HR 86, BP 118/61, RR 21, O2 sat percent on 2 L by nasal cannula. Eye: PERRL, anicteric sclera ENT: normocephalic atraumatic, no oropharyngeal lesions Neck: supple, no lymphadenopathy Heart: RRR, normal peripheral pulses Respiratory: CTAB, no wheezes, no rales, no ronchi, normal chest expansion Gastrointestinal: soft, non-tender, non-distended, normal bowel sounds Extremities: no edema Skin: normal turgor, no lesions, no rashes Neurological: cranial nerve grossly intact, normal sensation to touch Musculoskeletal: normal tone, normal strength, no muscle wasting Psychiatric: normal affect, normal behavior, A&O x 3 Hospitalist Results Result Diagrams: 05/13/20 21:52 05/13/20 21:52 Lab results: Laboratory Last Values WBC 7.1 thou/uL (4.8-10.8) 05/13/20 21:52 RBC 3.41 mill/uL (4.70-6.10) L 05/13/20 21:52 Hgb 9.5 g/dL (14.0-18.0) L 05/13/20 21:52 Hct 29.5 % (42.0-52.0) L 05/13/20 21:52 MCV 86.5 fL (78.0-98.0) 05/13/20 21:52 MCH 27.9 pg (27.0-31.0) 05/13/20 21:52 MCHC 32.2 g/dL (32.0-36.0) 05/13/20 21:52 RDW 13.9 % (11.5-14.5) 05/13/20 21:52 Plt Count 337 thou/uL (130-400) 05/13/20 21:52 MPV 6.5 fL (7.4-10.4) L 05/13/20 21:52 Neutrophils % 81.9 % (42.0-75.0) H 05/13/20 21:52 Lymphocytes % 6.3 % (21.0-51.0) L 05/13/20 21:52 Monocytes % 11.0 % (0.0-10.0) H 05/13/20 21:52 Eosinophils % 0.4 % (0.0-10.0) 05/13/20 21:52 Basophils % 0.3 % (0.0-1.0) 05/13/20 21:52 Neutrophils # 5.8 thou/uL (1.40-6.50) 05/13/20 21:52 Lymphocytes # 0.4 thou/uL (1.20-3.40) L 05/13/20 21:52 Monocytes # 0.8 thou/uL (0.11-0.59) H 05/13/20 21:52 Eosinophils # 0.0 thou/uL (0.0-0.7) 05/13/20 21:52 Basophils # 0.0 thou/uL (0.0-0.2) 05/13/20 21:52 PT 27.5 sec (12.0-14.7) H 05/13/20 21:52 INR 2.5 05/13/20 21:52 APTT 53.8 sec (22.9-36.1) H 05/13/20 21:52 Sodium 130 mmol/L (136-145) L 05/13/20 21:52 Potassium 3.8 mmol/L (3.5-5.1) 05/13/20 21:52 Chloride 98 mmol/L (98-107) 05/13/20 21:52 Carbon Dioxide 20 mmol/L (23-31) L 05/13/20 21:52 Anion Gap 16 mmol/L (10-20) 05/13/20 21:52 BUN 13 mg/dL (8.4-25.7) 05/13/20 21:52 Creatinine 0.92 mg/dL (0.7-1.3) 05/13/20 21:52 Estimated GFR (MDRD) 80 05/13/20 21:52 Glucose 96 mg/dL (83-110) 05/13/20 21:52 Lactic Acid 1.6 mmol/L (0.5-2.2) 05/13/20 21:52 Calcium 8.3 mg/dL (7.8-10.44) 05/13/20 21:52 Magnesium 2.3 mg/dL (1.6-2.6) 05/13/20 21:52 Total Bilirubin 0.7 mg/dL (0.2-1.2) 05/13/20 21:52 AST 26 U/L (5-34) 05/13/20 21:52 ALT 19 U/L (8-55) 05/13/20 21:52 Alkaline Phosphatase 90 U/L (40-110) 05/13/20 21:52 CK-MB (CK-2) 1.2 ng/mL (0-6.6) 05/13/20 21:52 Troponin I 0.056 ng/mL (< 0.028) H 05/14/20 00:40 B-Natriuretic Peptide 339.3 pg/mL (0-100) H 05/13/20 21:52 Serum Total Protein 6.9 g/dL (5.8-8.1) 05/13/20 21:52 Albumin 3.8 g/dL (3.4-4.8) 05/13/20 21:52 Globulin 3.1 g/dL (2.4-3.5) 05/13/20 21:52 Albumin/Globulin Ratio 1.2 g/dL (1.2-2.2) 05/13/20 21:52 Lipase 6 U/L (8-78) L 05/13/20 21:52 Urine Color Colorless (Yellow) 05/13/20 21:18 Urine Clarity Clear (Clear) 05/13/20 21:18 Urine pH 6.0 (5.0-9.0) 05/13/20 21:18 Ur Specific [place] 1.010 (1.002-1.036) 05/13/20 21:18 Urine Protein Negative mg/dL (Neg-Trace) 05/13/20 21:18 Urine Glucose (UA) Normal mg/dL (Negative) 05/13/20 21:18 Urine Ketones Trace mg/dL (Negative) A 05/13/20 21:18 Urine Blood Negative (Negative) 05/13/20 21:18 Urine Nitrite Negative (Negative) 05/13/20 21:18 Urine Bilirubin Negative (Negative) 05/13/20 21:18 Urine Urobilinogen Normal mg/dL (Less than 2) 05/13/20 21:18 Ur Leukocyte Esterase Negative Gael/uL (Negative) 05/13/20 21:18 Influenza A RNA INAAT Not Detected (NotDetected) 05/13/20 21:30 Influenza B RNA INAAT Not Detected (NotDetected) 05/13/20 21:30 SARS-CoV-2 Rap RNA(RT-PCR) DETECTED (NotDetected) A* 05/13/20 21:30 Blood Type A POSITIVE 05/13/20 21:48 Antibody Screen NEGATIVE 05/13/20 21:48 Chest x-ray Status: report reviewed by me CT scan - chest Status: pending Hospitalist H&P A/P (1) Shortness of breath Code(s): R06.02 - SHORTNESS OF BREATH Status: Acute (2) Weakness Code(s): R53.1 - WEAKNESS Status: Acute (3) Atrial fibrillation with RVR Code(s): I48.91 - UNSPECIFIED ATRIAL FIBRILLATION Status: Acute (4) HTN (hypertension) Code(s): I10 - ESSENTIAL (PRIMARY) HYPERTENSION Status: Chronic Qualifiers: Hypertension type: essential hypertension Qualified Code(s): I10 - Essential (primary) hypertension (5) Dyslipidemia Code(s): E78.5 - HYPERLIPIDEMIA, UNSPECIFIED Status: Chronic (6) COVID-19 Code(s): U07.1 - COVID-19 Status: Acute Plan: Continue cardiac and O2 sat monitoring CTA chest obtained Continue Lasix 20 mg IV BID Diltiazem discontinued by ED due to HR in 50s, now improved Cardiology consult placed Isolation: Contact, Airborne and Droplet due to COVID Vitamin C and Zinc ordered Will give Dexamethasone No antibiotics as no source of infection identified, fever could be due to COVID Albuterol inhalers PRN Check BNP with AM labs Monitor lytes Monitor BP Resume home meds as appropriate once verified GI Prophylaxis with famotidine CODE STATUS FULL
[2020-05-14] MEDS ORDERED: Albuterol Sulfate 2.5 mg/3 ml Neb NEB PRN (03:49)
[2020-05-14] MEDS ORDERED: Enoxaparin Sodium 40 MG/0.4 ML SYRINGE SC SCH ×2 (04:00→10:45)
[2020-05-14] MEDS ORDERED: Dexamethasone 10 MG in Sodium Chloride 0.9% 50 ML IVPB SCH (05:00)
[2020-05-14 05:03] VITALS: BMI 30.2
[2020-05-14 06:00] LABS: Anion Gap 15 mmol/L (10-20); BUN (Urea Nitrogen) 12 mg/dL (8.4-25.7); Calc. Creatinine Clearance 96 mL/min (70-130); Calcium 7.9 mg/dL (7.8-10.44); Carbon Dioxide 21 mmol/L (23-31); Chloride 104 mmol/L (98-107); Glucose 88 mg/dL (83-110); Potassium 3.8 mmol/L (3.5-5.1); Sodium 136 mmol/L (136-145)
[2020-05-14 06:03] LABS: Hemoglobin 10.8 g/dL (14.0-18.0); Mean Corpuscular HGB CONC 33.3 g/dL (32.0-36.0); Mean Corpuscular Hemoglobin 29.6 pg (27.0-31.0); Mean Platelet Volume 6.5 fL (7.4-10.4); Platelet Count 281 thou/uL (130-400); RBC Distribution Width 13.9 % (11.5-14.5); Red Blood Cell (RBC) Count 3.64 mill/uL (4.70-6.10); White Blood Cell (WBC) Count 4.3 thou/uL (4.8-10.8)
[2020-05-14 06:04] LABS: Band 3 % (5-11); Lymphocytes 9 % (21-51); MDiff Complete? YES; Monocytes 23 % (0-10); Neutrophil 65 % (42-75); Platelet Morphology Comment Appears Adequate
[2020-05-14 06:07] LABS: Troponin I 0.062 ng/mL (< 0.028)
--- NOTE | 2020-05-14 08:14 | CT ---
PRELIMINARY REPORT/[facility]/EMERGENCY AFTER HOURS PROCEDURE: EXAM: CTA Chest with Intravenous Contrast CLINICAL HISTORY: 79-year-old male with a history of A. fib who is brought in by EMS for reported darcy rtness of breath. Patient notes he is not short of breath and has no complaints currently. He does se em confused and is not able to report what happened today. He continues to think about 1 make medicat ions he is on and what medical problems he has been asked and is very slow to answer. There are no fo hawk deficits at this time however he does appear encephalopathic. TECHNIQUE: Axial CTA images of the chest with intravenous contrast. Three-dimensional MIP/volume rend ered reformations were performed. CONTRAST: With; ISOVUE 370; 67mL COMPARISON: None provided. FINDINGS: PULMONARY ARTERIES There is no intraluminal filling defect suspicious for PE. AORTA No thoracic aortic aneurysm or dissection. LUNGS Scattered ill-defined groundglass opacities with interlobular septal thickening. PLEURAL SPACES No pleural effusion. No pneumothorax. HEART AND MEDIASTINUM Coronary artery atherosclerotic disease to include the mitral and aortic annulu s. Multiple prominent mediastinal lymph nodes LYMPH NODES No lymphadenopathy. BONES Mild to moderate multilevel thoracic spondylosis. No acute osseous finding. CHEST WALL AND UPPER ABDOMEN Punctate calcification in the right hepatic lobe. Diffuse fatty infiltra tion of the pancreas. MISCELLANEOUS: Moderate size hiatal hernia. IMPRESSION: 1. No acute pulmonary thrombus. 2. Ill-defined ground glass opacities and interlobular septal thickening could represent interstitial and alveolar edema with underlying infection not excluded. No focal consolidation. 3. Moderate sized hiatal hernia. ELECTRONICALLY SIGNED BY: Howie Brock DO May 14, 2020 12:21:15 AM [employer]ITCHER FINAL REPORT EMERGENT AFTER HOURS CTA OF THE CHEST WITH CONTRAST: FINDINGS/IMPRESSION: I agree with the findings and impression given in the preliminary report per [facility] physici an. 1. No evidence of pulmonary thromboembolism. 2. Peripheral interstitial lung disease is likely a chronic rather than acute process. 3. Hiatal hernia. POS: EAA
[2020-05-14] MEDS ORDERED: Dexamethasone 4 mg/ml Vial SLOW IVP SCH ×2 (09:00→10:45)
[2020-05-14] MEDS ORDERED: Famotidine 20 MG TAB PO SCH (09:00)
[2020-05-14] MEDS: Ascorbic Acid 500 mg Chewable Tablet PO SCH (09:29)
[2020-05-14] MEDS: Zinc Sulfate 220 MG CAP PO SCH (09:29)
[2020-05-14] MEDS ORDERED: Colchicine 0.6 MG TAB PO PRN (10:26)
[2020-05-14] MEDS ORDERED: Furosemide 20 MG TAB PO SCH (10:45)
[2020-05-14] MEDS ORDERED: Clopidogrel Bisulfate 75 MG TAB PO SCH (10:45)
[2020-05-14] MEDS ORDERED: Atorvastatin Calcium 20 MG TAB PO SCH (10:45)
[2020-05-14] MEDS ORDERED: Warfarin Sodium 3 MG TAB PO SCH (17:00)
--- NOTE | 2020-05-14 17:08 | PDOC.HOSPP ---
- Subjective Encounter Date: 05/14/20 Encounter Time: 09:00 Subjective: Patient seen for follow-up regarding A. shavon with RVR. He denies chest pain. - Objective Vital Signs & Weight: Vital Signs (12 hours) Temp Pulse Resp BP Pulse Ox 05/14/20 15:40 97.9 F 67 14 132/70 97 05/14/20 12:00 98.9 F 112 H 22 H 119/63 93 L 05/14/20 10:46 112 H 119/63 93 L 05/14/20 10:00 138 H 102/55 L 97 05/14/20 09:29 93 L 05/14/20 08:00 99.5 F 79 26 H 133/60 93 L 05/14/20 05:14 100 Weight Weight 205 lb Result Diagrams: 05/14/20 05:35 05/14/20 05:36 Additional Labs: Labs and MAR reviewed by me EKG Reviewed by me: Yes (A. fib on telemetry) Hospitalist ROS - Review of Systems Respiratory: reports: SOB with excertion Cardiovascular: denies: chest pain, palpitations, orthopnea, paroxysmal noc. dyspnea, edema, light headedness Gastrointestinal: denies: nausea, vomiting, abdominal pain, diarrhea, constipation, melena, hematochezia - Medication Medications: Active Medications Generic Name Dose Route Start Last Admin Trade Name Freq PRN Reason Stop Dose Admin Acetaminophen 650 mg 05/14/20 03:14 05/14/20 10:50 Acetaminophen 325 Mg Tab PO 650 mg Q4H PRN Administration Headache/Fever/Mild Pain (1-3) Ascorbic Acid 1,000 mg 05/14/20 09:00 05/14/20 09:29 Ascorbic Acid 500 Mg Chewable Tablet PO 1,000 mg DAILY PAL Administration Sodium Chloride 10 ml 05/14/20 03:14 05/14/20 09:29 Flush - Normal Saline 10 Ml Syringe IVF 10 ml Q12HR PRN Administration Saline Flush Zinc Sulfate 220 mg 05/14/20 09:00 05/14/20 09:29 Zinc Sulfate 220 Mg Cap PO 220 mg DAILY PAL Administration Hospitalist Exam Vitals: Vital Signs (12 hours) Temp Pulse Resp BP Pulse Ox 05/14/20 15:40 97.9 F 67 14 132/70 97 05/14/20 12:00 98.9 F 112 H 22 H 119/63 93 L 02/09/21 10:46 112 H 119/63 93 L 05/14/20 10:00 138 H 102/55 L 97 05/14/20 09:29 93 L 05/14/20 08:00 99.5 F 79 26 H 133/60 93 L 05/14/20 05:14 100 Weight Weight 205 lb General Appearance: awake alert Eye: anicteric sclera ENT: moist mucosa Neck: supple Heart: irregular Respiratory: CTAB Gastrointestinal: soft, non-tender Skin: no rashes Musculoskeletal: no muscle wasting Psychiatric: normal affect, oriented to person, oriented to place Hosp A/P - Plan Assessment: (1) Atrial fibrillation with RVR Code(s): I48.91 - UNSPECIFIED ATRIAL FIBRILLATION Status: Acute (2) acute metabolic encephalopathy Status: Acute (3) Shortness of breath Code(s): R06.02 - SHORTNESS OF BREATH Status: Acute (4) HTN (hypertension) Code(s): I10 - ESSENTIAL (PRIMARY) HYPERTENSION Status: Chronic Qualifiers: Hypertension type: essential hypertension Qualified Code(s): I10 - Essential (primary) hypertension (5) COVID-19 Code(s): U07.1 - COVID-19 Status: Acute (6) Dyslipidemia Code(s): E78.5 - HYPERLIPIDEMIA, UNSPECIFIED Status: Chronic Plan: Resume home medications including metoprolol. Patient is off of Cardizem drip. No evidence of pulmonary embolism on CT angio chest. Continue dexamethasone. Patient did not qualify for remdesivir. GI prophylaxis with Protonix. Continue vitamin C and zinc. Cardiology has been consulted.
--- NOTE | 2020-05-14 18:41 | CON ---
DATE OF CONSULTATION: 05/14/2020 REASON FOR CONSULTATION: Elevated troponin, COVID positive pneumonia. HISTORY OF PRESENT ILLNESS: Mr. Sainz is a 79-year-old gentleman with history of CAD, status post recent stent placement in August, who recently presented with COVID pneumonia type symptoms. His troponin was mildly elevated. The interview was conducted over the phone due to COVID positive pneumonia. He states he denied chest pain pressure. He is short of breath most likely from underlying COVID. He is currently on high-flow oxygen. PAST MEDICAL HISTORY: [id number] CAD diagnosed at [facility] with an FFR of the mid LAD of 0.85%. He then states he underwent stent placement likely to the LAD in [place], [place]. Tonsillectomy, hip replacement, and hernia repair. SOCIAL HISTORY: No current tobacco or alcohol use. ALLERGIES: NONE. HOME MEDICATIONS: Include: 1. Norvasc. 2. Omeprazole. 3. Metoprolol. 4. Coumadin. 5. Atorvastatin. 6. Hydrocodone. 7. Trazodone. REVIEW OF SYSTEMS: A 10-point review of systems is reviewed as above, otherwise negative. PHYSICAL EXAMINATION: VITAL SIGNS: Blood pressure 132/70, pulse 67, and temperature afebrile. Physical exam deferred due to COVID positive pneumonia. PERTINENT LABORATORY DATA: Hemoglobin 10.8, hematocrit 32.4, white blood cell count 4.3, platelet count 281. Creatinine 0.85. Peak troponin 0.037. IMPRESSION: 1. Elevated troponin. 2. COVID positive pneumonia. 3. Coronary artery disease. 4. Status post stent placed. RECOMMENDATIONS: Mr. Sainz' elevated troponin secondary to demand ischemia. We will treat COVID positive pneumonia aggressively. I agree with continuing Plavix in addition to atorvastatin. He is also on low-dose enoxaparin. Metoprolol has been discontinued at the higher dose and replace the lower dose metoprolol. Otherwise, I have no further recommendations. Job ID: [id number]
[2020-05-14] MEDS ORDERED: traZODone HCl 150 MG TAB PO SCH (21:00)
[2020-05-14] MEDS ORDERED: Non-Formulary Item 1 EACH (Trazodone Hcl [Trazodone Hcl] 100 MG Tablet) PO SCH (21:00)
[2020-05-14] MEDS: Furosemide 20 MG TAB PO SCH (21:47)
--- NOTE | 2020-05-15 02:10 | PDOC.EVN ---
Event Note - Event Note Event Note: Nursing called, reported bradycardia, HR 50s, dipping 40s. Other VS WNL. Patient denies chest pain. No AMS. Reviewed labs and consultations. Patient on reduced BB dosing. Lytes WNL yesterday. Had echocardiogram 06/22. Order STAT EKG, am labs. Cardiology following.
[2020-05-15 04:56] LABS: #Lymphocytes 0.8 thou/uL (1.20-3.40); #Monocytes 0.7 thou/uL (0.11-0.59); #Neutrophils 4.7 thou/uL (1.40-6.50); %Basophils 0.3 % (0.0-1.0); %Eosinophils 0.1 % (0.0-10.0); %Lymphocytes 13.4 % (21.0-51.0); %Monocytes 11.3 % (0.0-10.0); %Neutrophils 74.9 % (42.0-75.0); Hemoglobin 10.6 g/dL (14.0-18.0); Mean Corpuscular HGB CONC 31.1 g/dL (32.0-36.0); Mean Corpuscular Hemoglobin 27.4 pg (27.0-31.0); Mean Corpuscular Volume 88.2 fL (78.0-98.0); Mean Platelet Volume 6.7 fL (7.4-10.4); Platelet Count 356 thou/uL (130-400); RBC Distribution Width 13.9 % (11.5-14.5); Red Blood Cell (RBC) Count 3.86 mill/uL (4.70-6.10); White Blood Cell (WBC) Count 6.3 thou/uL (4.8-10.8)
[2020-05-15 05:17] LABS: Anion Gap 12 mmol/L (10-20); BUN (Urea Nitrogen) 16 mg/dL (8.4-25.7); Calc. Creatinine Clearance 90 mL/min (70-130); Calcium 8.3 mg/dL (7.8-10.44); Carbon Dioxide 25 mmol/L (23-31); Chloride 106 mmol/L (98-107); Glucose 117 mg/dL (83-110); Potassium 3.9 mmol/L (3.5-5.1); Sodium 139 mmol/L (136-145)
[2020-05-15] MEDS ORDERED: Atorvastatin Calcium 20 MG TAB PO SCH (09:00)
[2020-05-15] MEDS ORDERED: Non-Formulary Item 1 EACH (Omeprazole [Omeprazole] 40 MG Capsule.Dr) PO SCH (09:00)
[2020-05-15] MEDS ORDERED: Clopidogrel Bisulfate 75 MG TAB PO SCH (09:00)
[2020-05-15] MEDS ORDERED: Enoxaparin Sodium 40 MG/0.4 ML SYRINGE SC SCH (09:00)
[2020-05-15] MEDS ORDERED: Dexamethasone 4 mg/ml Vial SLOW IVP SCH (09:00)
[2020-05-15] MEDS: Ascorbic Acid 500 mg Chewable Tablet PO SCH (09:05)
[2020-05-15] MEDS: Zinc Sulfate 220 MG CAP PO SCH (09:07)
[2020-05-15] MEDS: Furosemide 20 MG TAB PO SCH (09:07)
--- NOTE | 2020-05-15 09:46 | PQF ---
CLINICAL DOCUMENTATION CLARIFICATION FORM: Dear Dr. ANGIE LA Date: 05-15-20 Please exercise your independent, professional judgment in responding to the clarification form. Clinical indicators are provided on the bottom of this form for your review. Please check appropriate box(es): [ ] Acute Respiratory Failure: [ ] with Hypoxia [ ] with Hypercapnia [ ] Hypoxia [ X ] Other diagnosis ___NO DOCUMENTED HYPOXIA [ ] Unable to determine In addition, please specify: Present on Admission (POA): [ ] Yes [ ] No [ ] Unable to determine For continuity of documentation, please document condition throughout progress notes and discharge summary. Thank You. To be completed by CDI/Coding staff for physician review: CLINICAL INDICATORS - SIGNS / SYMPTOMS / LABS / RESULTS AND LOCATION IN MR: ER DX: 05-13-20: SEPSIS 2/2 COVID, A FIB WITH RVR, AMS, HYPOXIA H&P: 05-14-20: SOB, WEAKNESS, A FIB WITH RVR, HTN, DYSLIPIDEMIA, COVID 19, CONTINUE CARDIAC AND O2 SAT MONITORING, CTA CHEST OBTAINED, CONTINUE LASIX 20MG IV BID, ALBUTEROL INHALERS PRN CONSULT NOTE DR. CORRALES 05-14-20: HE IS SOB MOST LIKELY FROM UNDERLYING COVID. HE IS CURRENTLY ON HIGH FLOW OXYGEN ER NOTES 05-13-20: RR: 26, O2 SAT 95 ON 2L, RR: 28, 25, 26, 24, O2 SAT 93 ON 2L RISK FACTORS/ RESULTS AND LOCATION IN MR: ER DX: 05-13-20: SEPSIS 2/2 COVID, A FIB WITH RVR, AMS, HYPOXIA TREATMENTS / RESULTS AND LOCATION IN MR: H&P: 05-14-20: SOB, WEAKNESS, A FIB WITH RVR, HTN, DYSLIPIDEMIA, COVID 19, CONTINUE CARDIAC AND O2 SAT MONITORING, CTA CHEST OBTAINED, CONTINUE LASIX 20MG IV BID, ALBUTEROL INHALERS PRN Acute Respiratory Failure: ABG pH < 7.35 or > 7.45; Decreased oxygen saturation (<90% room air or < 95% on oxygen); PCO2 > 50 mm Hg; PO2 < 60 mm Hg; Labored or rapid respirations ARDS: Dx Criteria [[place] ARDS]: Respiratory symptoms within one week of a known clinical insult (e.g. shock, infection, surgery, trauma) Bilateral opacities in CXR/Chest CT not due to CHF or fluid CDS Signature: Telma Bemiracle Phone #: [phone] Date: 05-15-20 This is a permanent part of the Medical Record [facility]
[2020-05-15 12:10] VITALS: TEMP 98.5
[2020-05-15 13:19] LABS: INR-International Normal Ratio 1.6; Prothrombin Time 18.9 sec (12.0-14.7)
--- NOTE | 2020-05-15 14:14 | PDOC.DS.DS ---
Provider Date of Admission: 05/13/20 23:34 Date of Discharge: 05/15/20 Admitting Provider: Karon Lopez MD Consultations: Cardiology (Dr. Ashton) Primary Care Physician: Ubaldo Burch MD Course Hospital Course: Discharge diagnosis: 1. A. fib with RVR 2. Non-ST elevation myocardial infarction type II secondary to COVID-19 infection 3. COVID-19 infection 4. Hiatal hernia 5. Acute metabolic encephalopathy Hospital course: Patient is a pleasant 79-year-old gentleman who was admitted to the hospital on May 13, 2020 for atrial fibrillation with rapid ventricular response. He was also found to be positive for COVID-19. CT angiogram of the chest did not show any evidence of pulmonary thromboembolism. Peripheral interstitial lung disease was likely chronic rather than acute process, according to radiologist. He had a moderate sized hiatal hernia. Patient reportedly had episode of confusion just prior to admission. Noncontrast CT scan of the head did not show any intracranial hemorrhage or displaced calvarial fracture. His confusion resolved. He did not qualify for remdesivir or steroid therapy, although he did receive a couple of doses of dexamethasone. He converted into normal sinus rhythm at 11:50 AM on May 14, 2020 and continued to stay in the sinus rhythm. He has been cleared for discharge by cardiology service. He is being discharged home on vitamin C and zinc. Many thanks for allowing me to participate in your patient's care. Please feel free to contact me with any questions or concerns. Discharge destination: Home Total amount of time spent coordinating this discharge: 32 minutes Resuscitation Status: 05/14/20 03:14 Resuscitation Status Routine Co-Sign Provider: Resuscitation Status: FULL: Full Resuscitation Lab Results: 05/15/20 04:45 05/15/20 04:45 Abnormal Lab Results - Last 48 hrs 05/13/20 21:18: Urine Ketones Trace A 05/13/20 21:30: SARS-CoV-2 Rap RNA(RT-PCR) DETECTED A* 05/13/20 21:52: Sodium 130 L, Carbon Dioxide 20 L, Lipase 6 L 05/13/20 21:52: PT 27.5 H, APTT 53.8 H 05/13/20 21:52: RBC 3.41 L, Hgb 9.5 L, Hct 29.5 L, MPV 6.5 L, Neutrophils % 81.9 H, Lymphocytes % 6.3 L, Monocytes % 11.0 H, Lymphocytes # 0.4 L, Monocytes # 0.8 H 05/13/20 21:52: Troponin I 0.037 H 05/13/20 21:52: B-Natriuretic Peptide 339.3 H 05/14/20 00:40: Troponin I 0.056 H 05/14/20 05:35: WBC 4.3 L, RBC 3.64 L, Hgb 10.8 L, Hct 32.4 L, MPV 6.5 L, Band Neuts % (Manual) 3 L, Lymphocytes % (Manual) 9 L, Monocytes % (Manual) 23 H 05/14/20 05:36: Troponin I 0.062 H 05/14/20 05:36: Carbon Dioxide 21 L 05/15/20 04:45: RBC 3.86 L, Hgb 10.6 L, Hct 34.1 L, MCHC 31.1 L, MPV 6.7 L, Lymphocytes % 13.4 L, Monocytes % 11.3 H, Lymphocytes # 0.8 L, Monocytes # 0.7 H 05/15/20 13:05: PT 18.9 H Microbiology - Entire Visit 05/13/20 21:46 Venous blood - Right Hand Blood Culture - Preliminary Specimen has been received and culture in progress. No Growth to date. 05/13/20 21:45 Venous blood - Left Hand Blood Culture - Preliminary Specimen has been received and culture in progress. No Growth to date. 05/14/20 15:20 Stool Stool Occult Blood (HAYLEY) - Final 05/13/20 21:18 Urine voided Urine Culture - Preliminary NO GROWTH AT 12 HOURS Vitals: Vital Signs (12 hours) Temp Pulse Resp BP Pulse Ox 05/15/20 11:57 98.5 F 59 L 20 141/58 H 100 05/15/20 08:00 97.8 F 67 21 H 159/73 H 100 05/15/20 04:00 97.4 F L 68 16 144/68 H 100 Weight Weight 205 lb Physical Exam: The patient was seen and examined on the day of discharge. Patient denies chest pain or shortness of breath. Vital signs are stable. S1 and S2 are heard. Lungs are clear to auscultation bilaterally. Plan Prescriptions: Ascorbic Acid [Vitamin C] 1,000 mg PO DAILY #14 tablet Zinc Sulfate [Zinc-220] 220 mg PO DAILY #14 capsule Home Medications: Medication Instructions Recorded Confirmed Type Atorvastatin Calcium [Lipitor] 20 mg PO DAILY 06/18/19 05/14/20 History Metoprolol Succinate [Toprol XL] 50 mg PO DAILY 06/18/19 05/14/20 History Omeprazole 40 mg PO DAILY 06/18/19 05/14/20 History Warfarin Sodium [Coumadin] 6 mg PO DAILY 06/18/19 05/14/20 History traZODone HCl [Trazodone HCl] 300 mg PO HS 06/18/19 05/14/20 History Clopidogrel Bisulfate [Plavix] 75 mg PO DAILY 05/14/20 05/14/20 History Colchicine 0.6 mg PO DAILY PRN 05/14/20 05/14/20 History Furosemide [Lasix] 20 mg PO BID 05/14/20 05/14/20 History Ascorbic Acid [Vitamin C] 1,000 mg PO DAILY #14 tablet 05/15/20 Rx Zinc Sulfate [Zinc-220] 220 mg PO DAILY #14 capsule 05/15/20 Rx Allergies: bacitracin [From Neosporin ([id number])] Allergy (Verified 05/14/20 05:02) neomycin [From Neosporin ([id number])] Allergy (Verified 05/14/20 05:02) polymyxin B [From Neosporin ([id number])] Allergy (Verified 05/14/20 05:02) Discharge Instructions:: Check your blood pressure and heart rate 3 times a day and shows readings to your primary care provider. Obtain a pulse oximeter and check your oxygen levels 3 times a day and whenever feeling short of breath. Seek medical attention for oxygen levels less than 90%. Referrals: Ubaldo Burch MD [Primary Care Provider] - 3 Days (CALL TO SCHEDULE AN APPOINTMENT.) Disposition: HOME Quality CORE MEASURES:: N/A
[2020-05-15 16:01] VITALS: BP 153/63
--- NOTE | 2020-05-15 18:50 | PRG ---
DATE OF SERVICE: 05/15/2020 SUBJECTIVE: Mr. Sainz is currently doing well. No current complaints. He states he is feeling better, breathing better. He would like to go home. Episode of atrial fibrillation overnight. Appears to be in sinus rhythm. OBJECTIVE: VITAL SIGNS: 153/63, pulse 67, temperature 98.5. Physical exam deferred due to COVID positive. IMPRESSION: 1. Coronary artery disease. 2. Status post stent placed. 3. Atrial fibrillation with rapid ventricular rate.. RECOMMENDATIONS: Mr. Sainz is currently stable. He is on outpatient Coumadin, we will continue. His rate appears to be stable. The patient is to follow up with his primary employee benefits manager as an outpatient. Job ID: [id number]
== END 2020-05-15 16:40 | disposition home or self-care (01) | DRG 871 ==
LOC: ERS 20:47 → 2SW 23:34
PROVIDERS: ADMIT Internal Medicine; ATTEND Internal Medicine
PROC: 8E0ZXY6 Isolation (ICD-10-PCS; principal; 2020-05-13)
DX: A41.89 Other specified sepsis (principal); U07.1 COVID-19; I21.A1 Myocardial infarction type 2; G93.41 Metabolic encephalopathy; I48.20 Chronic atrial fibrillation, unspecified; K44.9 Diaphragmatic hernia without obstruction or gangrene; E78.5 Hyperlipidemia, unspecified; I10 Essential (primary) hypertension; Z96.641 Presence of right artificial hip joint; Z88.1 Allergy status to other antibiotic agents; I25.10 Atherosclerotic heart disease of native coronary artery without angina pectoris; E78.00 Pure hypercholesterolemia, unspecified; K21.9 Gastro-esophageal reflux disease without esophagitis
CPT/HCPCS: 0240U; 36415; 70450; 71045; 71275; 80048; 80053; 81003; 82274; 82553; 83605; 83690; 83735; 83880; 84443; 84484; 85025; 85610; 85730; 86850; 86900; 86901; 87040; 87086; 93005; 93010; 96365; 96366; 96367; 96368; 96376; J0696; J1100; J1650; J3370; J3475; Q9967

== ENCOUNTER 2020-05-19 14:10 | Inpatient (IN) | payer MEDICARE ==
[2020-05-19] MEDS ORDERED: Ondansetron PF 4 MG/2 ML Vial IVP PRN (17:59)
[2020-05-19] MEDS ORDERED: Warfarin Sodium 3 MG TAB PO SCH (18:15)
[2020-05-19] MEDS ORDERED: FLU VACC QS2020-21(65YR UP)/PF 240 MCG/0.7 ML SYRINGE IM ONE (21:00)
[2020-05-19] MEDS: traZODone HCl 150 MG TAB PO SCH (22:23)
[2020-05-19] MEDS: Furosemide 20 MG TAB PO SCH (22:23)
[2020-05-19] MEDS: Acetaminophen 325 MG TAB PO PRN (22:24)
[2020-05-19] MEDS ORDERED: Metoprolol Tartrate 5 MG/5 ML VIAL IVP SCH (23:45)
[2020-05-20 01:52] LABS: INR-International Normal Ratio 1.3; Prothrombin Time 16.6 sec (12.0-14.7)
[2020-05-20] MEDS ORDERED: Clopidogrel Bisulfate 75 MG TAB ONE (11:01)
[2020-05-20] MEDS ORDERED: Zinc Sulfate 220 MG CAP ONE (11:02)
[2020-05-20] MEDS: Furosemide 20 MG TAB PO SCH ×2 (11:10→22:28)
[2020-05-20] MEDS: Zinc Sulfate 220 MG CAP PO SCH (11:10)
[2020-05-20] MEDS: Clopidogrel Bisulfate 75 MG TAB PO SCH (11:10)
[2020-05-20] MEDS ORDERED: Furosemide 20 MG TAB ONE (11:11)
[2020-05-20] MEDS ORDERED: Acetaminophen 325 MG TAB ONE (12:09)
[2020-05-20 14:10] LABS: Anion Gap 12 mmol/L (10-20); BUN (Urea Nitrogen) 12 mg/dL (8.4-25.7); Calc. Creatinine Clearance 104 mL/min (70-130); Calcium 7.7 mg/dL (7.8-10.44); Carbon Dioxide 20 mmol/L (23-31); Chloride 105 mmol/L (98-107); Glucose 96 mg/dL (83-110); Magnesium 1.9 mg/dL (1.6-2.6); Potassium 3.6 mmol/L (3.5-5.1); Sodium 133 mmol/L (136-145)
[2020-05-20 15:43] LABS: #Lymphocytes 0.6 thou/uL (1.20-3.40); #Monocytes 0.4 thou/uL (0.11-0.59); #Neutrophils 3.2 thou/uL (1.40-6.50); %Lymphocytes 15.1 % (21.0-51.0); %Monocytes 9.5 % (0.0-10.0); %Neutrophils 74.5 % (42.0-75.0); Hemoglobin 10.8 g/dL (14.0-18.0); Mean Corpuscular HGB CONC 30.9 g/dL (32.0-36.0); Mean Corpuscular Hemoglobin 28.1 pg (27.0-31.0); Mean Corpuscular Volume 90.8 fL (78.0-98.0); Platelet Count 280 thou/uL (130-400); RBC Distribution Width 13.9 % (11.5-14.5); Red Blood Cell (RBC) Count 3.85 mill/uL (4.70-6.10); White Blood Cell (WBC) Count 4.3 thou/uL (4.8-10.8)
[2020-05-20] MEDS: Warfarin Sodium 3 MG TAB PO SCH (17:02)
[2020-05-20] MEDS: Atorvastatin Calcium 20 MG TAB PO SCH (22:28)
[2020-05-20] MEDS: traZODone HCl 150 MG TAB PO SCH (22:28)
[2020-05-20] MEDS: Acetaminophen 325 MG TAB PO PRN (22:29)
[2020-05-21 04:29] LABS: INR-International Normal Ratio 1.3; Prothrombin Time 16.8 sec (12.0-14.7)
[2020-05-21 05:06] LABS: Anion Gap 13 mmol/L (10-20); BUN (Urea Nitrogen) 20 mg/dL (8.4-25.7); Calc. Creatinine Clearance 57 mL/min (70-130); Carbon Dioxide 23 mmol/L (23-31); Chloride 101 mmol/L (98-107); Glucose 100 mg/dL (83-110); Potassium 3.9 mmol/L (3.5-5.1); Sodium 133 mmol/L (136-145)
[2020-05-21 06:37] LABS: #Lymphocytes 0.8 thou/uL (1.20-3.40); #Monocytes 0.5 thou/uL (0.11-0.59); #Neutrophils 3.1 thou/uL (1.40-6.50); %Basophils 0.2 % (0.0-1.0); %Eosinophils 0.3 % (0.0-10.0); %Lymphocytes 18.2 % (21.0-51.0); %Monocytes 11.3 % (0.0-10.0); Hemoglobin 10.6 g/dL (14.0-18.0); Mean Corpuscular HGB CONC 31.9 g/dL (32.0-36.0); Mean Corpuscular Hemoglobin 27.7 pg (27.0-31.0); Mean Corpuscular Volume 86.8 fL (78.0-98.0); Mean Platelet Volume 6.9 fL (7.4-10.4); Platelet Count 323 thou/uL (130-400); RBC Distribution Width 13.6 % (11.5-14.5); Red Blood Cell (RBC) Count 3.83 mill/uL (4.70-6.10); White Blood Cell (WBC) Count 4.4 thou/uL (4.8-10.8)
[2020-05-21] MEDS: Zinc Sulfate 220 MG CAP PO SCH (10:40)
[2020-05-21] MEDS: Clopidogrel Bisulfate 75 MG TAB PO SCH (10:41)
[2020-05-21] MEDS: Furosemide 20 MG TAB PO SCH ×2 (10:41→20:56)
[2020-05-21] MEDS: Sodium Chloride 0.9% 1,000 ML IV SCH (14:53)
[2020-05-21] MEDS: Vancomycin HCl 25 MG/ML Oral PO SCH ×2 (14:53→20:59)
[2020-05-21] MEDS: Acetaminophen 325 MG TAB PO PRN (17:25)
[2020-05-21] MEDS: Warfarin Sodium 3 MG TAB PO SCH (17:26)
[2020-05-21] MEDS: Atorvastatin Calcium 20 MG TAB PO SCH (20:56)
[2020-05-21] MEDS: traZODone HCl 150 MG TAB PO SCH (20:56)
[2020-05-22] MEDS: Vancomycin HCl 25 MG/ML Oral PO SCH ×4 (02:48→19:28)
[2020-05-22] MEDS: Sodium Chloride 0.9% 1,000 ML IV SCH (02:49)
[2020-05-22 05:12] LABS: #Lymphocytes 0.9 thou/uL (1.20-3.40); #Monocytes 0.4 thou/uL (0.11-0.59); #Neutrophils 1.9 thou/uL (1.40-6.50); %Basophils 0.4 % (0.0-1.0); %Eosinophils 1.3 % (0.0-10.0); %Lymphocytes 26.9 % (21.0-51.0); %Monocytes 11.3 % (0.0-10.0); %Neutrophils 60.1 % (42.0-75.0); Hemoglobin 10.4 g/dL (14.0-18.0); Mean Corpuscular HGB CONC 33.1 g/dL (32.0-36.0); Mean Corpuscular Hemoglobin 29.1 pg (27.0-31.0); Mean Platelet Volume 6.8 fL (7.4-10.4); Platelet Count 286 thou/uL (130-400); RBC Distribution Width 13.6 % (11.5-14.5); Red Blood Cell (RBC) Count 3.58 mill/uL (4.70-6.10); White Blood Cell (WBC) Count 3.2 thou/uL (4.8-10.8)
[2020-05-22 05:18] LABS: INR-International Normal Ratio 1.4; Prothrombin Time 17.1 sec (12.0-14.7)
[2020-05-22 05:34] LABS: Anion Gap 11 mmol/L (10-20); BUN (Urea Nitrogen) 18 mg/dL (8.4-25.7); Calc. Creatinine Clearance 80 mL/min (70-130); Calcium 7.8 mg/dL (7.8-10.44); Carbon Dioxide 25 mmol/L (23-31); Chloride 103 mmol/L (98-107); Glucose 87 mg/dL (83-110); Potassium 3.8 mmol/L (3.5-5.1); Sodium 135 mmol/L (136-145)
[2020-05-22] MEDS: Clopidogrel Bisulfate 75 MG TAB PO SCH (09:38)
[2020-05-22] MEDS: Zinc Sulfate 220 MG CAP PO SCH (09:38)
[2020-05-22] MEDS: Furosemide 20 MG TAB PO SCH (09:38)
[2020-05-22] MEDS: Warfarin Sodium 3 MG TAB PO SCH (17:35)
[2020-05-22] MEDS ORDERED: Furosemide 40 MG/4 ML VIAL SLOW IVP SCH (18:45)
[2020-05-22] MEDS ORDERED: Dexamethasone 4 MG TAB PO SCH (18:45)
[2020-05-22] MEDS ORDERED: Melatonin 3 MG TAB PO PRN (20:43)
[2020-05-22] MEDS ORDERED: Enoxaparin Sodium 80 MG/0.8 ML SYRINGE SC SCH (21:00)
[2020-05-22] MEDS: Atorvastatin Calcium 20 MG TAB PO SCH (21:35)
[2020-05-22] MEDS: traZODone HCl 150 MG TAB PO SCH (21:35)
[2020-05-22 21:38] LABS: Lactic Acid 1.4 mmol/L (0.5-2.2)
[2020-05-22 21:42] LABS: Anion Gap 17 mmol/L (10-20); Carbon Dioxide 21 mmol/L (23-31); Chloride 99 mmol/L (98-107); Magnesium 1.5 mg/dL (1.6-2.6); Potassium 3.6 mmol/L (3.5-5.1); Sodium 133 mmol/L (136-145)
[2020-05-22] MEDS ORDERED: Magnesium Sulfate 4 GM in Sodium Chloride 0.9% 250 ML 250 ML IVPB SCH (23:59)
[2020-05-23] MEDS: Vancomycin HCl 25 MG/ML Oral PO SCH ×4 (04:29→20:57)
[2020-05-23 05:04] LABS: INR-International Normal Ratio 1.3; Prothrombin Time 16.2 sec (12.0-14.7)
[2020-05-23 05:22] LABS: Anion Gap 15 mmol/L (10-20); BUN (Urea Nitrogen) 20 mg/dL (8.4-25.7); Calc. Creatinine Clearance 74 mL/min (70-130); Calcium 8.2 mg/dL (7.8-10.44); Carbon Dioxide 22 mmol/L (23-31); Chloride 100 mmol/L (98-107); Glucose 125 mg/dL (83-110); Magnesium 3.4 mg/dL (1.6-2.6); Potassium 3.9 mmol/L (3.5-5.1); Sodium 133 mmol/L (136-145)
[2020-05-23 05:43] LABS: Band 6 % (5-11); Hemoglobin 12.3 g/dL (14.0-18.0); Lymphocytes 15 % (21-51); MDiff Complete? YES; Mean Corpuscular HGB CONC 31.2 g/dL (32.0-36.0); Mean Corpuscular Hemoglobin 26.8 pg (27.0-31.0); Mean Platelet Volume 7.2 fL (7.4-10.4); Monocytes 6 % (0-10); Neutrophil 69 % (42-75); Platelet Count 327 thou/uL (130-400); RBC Distribution Width 13.9 % (11.5-14.5); Reactive Lymphocytes 4 % (0-10); Red Blood Cell (RBC) Count 4.59 mill/uL (4.70-6.10); White Blood Cell (WBC) Count 3.9 thou/uL (4.8-10.8)
[2020-05-23] MEDS: Zinc Sulfate 220 MG CAP PO SCH (08:49)
[2020-05-23] MEDS: Clopidogrel Bisulfate 75 MG TAB PO SCH (08:49)
[2020-05-23] MEDS ORDERED: Furosemide 20 MG TAB PO SCH (15:45)
[2020-05-23] MEDS ORDERED: Warfarin Sodium 7.5 MG TAB PO SCH (17:00)
[2020-05-23] MEDS: Atorvastatin Calcium 20 MG TAB PO SCH (20:56)
[2020-05-23] MEDS: traZODone HCl 150 MG TAB PO SCH (20:56)
[2020-05-23] MEDS: Enoxaparin Sodium 80 MG/0.8 ML SYRINGE SC SCH (20:57)
[2020-05-24] MEDS: Vancomycin HCl 25 MG/ML Oral PO SCH ×2 (01:25→09:21)
[2020-05-24 04:51] LABS: #Lymphocytes 1.3 thou/uL (1.20-3.40); #Monocytes 0.4 thou/uL (0.11-0.59); #Neutrophils 5.6 thou/uL (1.40-6.50); %Eosinophils 0.4 % (0.0-10.0); %Lymphocytes 17.9 % (21.0-51.0); %Monocytes 5.3 % (0.0-10.0); %Neutrophils 76.4 % (42.0-75.0); Mean Corpuscular HGB CONC 32.6 g/dL (32.0-36.0); Mean Corpuscular Hemoglobin 28.5 pg (27.0-31.0); Mean Corpuscular Volume 87.4 fL (78.0-98.0); Mean Platelet Volume 6.9 fL (7.4-10.4); Platelet Count 379 thou/uL (130-400); RBC Distribution Width 13.6 % (11.5-14.5); Red Blood Cell (RBC) Count 4.23 mill/uL (4.70-6.10); White Blood Cell (WBC) Count 7.4 thou/uL (4.8-10.8)
[2020-05-24 04:54] LABS: INR-International Normal Ratio 1.9; Prothrombin Time 21.8 sec (12.0-14.7)
[2020-05-24 05:05] LABS: Anion Gap 14 mmol/L (10-20); BUN (Urea Nitrogen) 34 mg/dL (8.4-25.7); Calc. Creatinine Clearance 61 mL/min (70-130); Calcium 8.1 mg/dL (7.8-10.44); Carbon Dioxide 23 mmol/L (23-31); Chloride 100 mmol/L (98-107); Glucose 88 mg/dL (83-110); Sodium 133 mmol/L (136-145)
[2020-05-24] MEDS ORDERED: Furosemide 20 MG TAB PO SCH (09:00)
[2020-05-24] MEDS: Zinc Sulfate 220 MG CAP PO SCH (09:21)
[2020-05-24] MEDS: Clopidogrel Bisulfate 75 MG TAB PO SCH (09:21)
[2020-05-24 10:31] VITALS: BP 127/63; TEMP 98.2
[2020-05-24] MEDS: Enoxaparin Sodium 80 MG/0.8 ML SYRINGE SC SCH (10:32)
== END 2020-05-24 13:16 | disposition home or self-care (01) | DRG 308 ==
LOC: 2SW 17:00 → OBSVTOIN 05-20 16:14
PROVIDERS: ADMIT Internal Medicine; ATTEND Internal Medicine
PROC: 8E0ZXY6 Isolation (ICD-10-PCS; principal; 2020-05-20)
DX: I48.20 Chronic atrial fibrillation, unspecified (principal); U07.1 COVID-19; J96.01 Acute respiratory failure with hypoxia; A04.72 Enterocolitis due to Clostridium difficile, not specified as recurrent; N17.9 Acute kidney failure, unspecified; I47.1 Supraventricular tachycardia; I10 Essential (primary) hypertension; I25.10 Atherosclerotic heart disease of native coronary artery without angina pectoris; K21.9 Gastro-esophageal reflux disease without esophagitis; E78.00 Pure hypercholesterolemia, unspecified; Z88.1 Allergy status to other antibiotic agents; Z95.5 Presence of coronary angioplasty implant and graft; Z90.89 Acquired absence of other organs; Z79.01 Long term (current) use of anticoagulants
CPT/HCPCS: 36415; 71045; 80048; 83605; 83630; 83735; 83880; 85025; 85610; 87324; 87427; 87449; 93005; 93010; 96374; 96375; G0378; J1650; J1940; J3475; J7050; J8540

== ENCOUNTER 2020-06-21 13:32 | Inpatient (IN) | payer MEDICARE ==
[2020-06-21 14:38] LABS: #Eosinphils 0.1 thou/uL (0.0-0.7); #Lymphocytes 1.8 thou/uL (1.20-3.40); #Monocytes 0.9 thou/uL (0.11-0.59); #Neutrophils 7.8 thou/uL (1.40-6.50); %Basophils 0.4 % (0.0-1.0); %Eosinophils 0.7 % (0.0-10.0); %Lymphocytes 16.9 % (21.0-51.0); %Monocytes 8.5 % (0.0-10.0); %Neutrophils 73.6 % (42.0-75.0); Hemoglobin 9.2 g/dL (14.0-18.0); Mean Corpuscular Hemoglobin 28.5 pg (27.0-31.0); Mean Platelet Volume 6.7 fL (7.4-10.4); Platelet Count 291 thou/uL (130-400); RBC Distribution Width 16.8 % (11.5-14.5); Red Blood Cell (RBC) Count 3.23 mill/uL (4.70-6.10); White Blood Cell (WBC) Count 10.6 thou/uL (4.8-10.8)
[2020-06-21 14:44] LABS: INR-International Normal Ratio 3.6; PTT 41.9 sec (22.9-36.1); Prothrombin Time 36.7 sec (12.0-14.7)
[2020-06-21 14:46] LABS: Bilirubin Negative (Negative); Blood, Urine Negative (Negative); Clarity Clear (Clear); Glucose, Urine (Dipstick) Normal (Negative); Ketone, Urine Negative (Negative); Leukocyte Negative Leu/uL (Negative); Nitrite Negative (Negative); Protein, Urine (Dipstick) Negative (Neg-Trace); Specific Gravity, Urine 1.018 (1.002-1.036); Urobilinogen Normal mg/dL (Less than 2); pH, Urine 5.5 (5.0-9.0)
[2020-06-21 15:03] LABS: ALT (SGPT) 15 U/L (8-55); AST (SGOT) 25 U/L (5-34); Alkaline Phosphatase 87 U/L (40-110); Anion Gap 14 mmol/L (10-20); BUN (Urea Nitrogen) 26 mg/dL (8.4-25.7); Bilirubin, Total 0.5 mg/dL (0.2-1.2); CK (CPK) 67 U/L (30-200); Calc. Creatinine Clearance 0 mL/min (70-130); Calcium 7.8 mg/dL (7.8-10.44); Carbon Dioxide 20 mmol/L (23-31); Chloride 112 mmol/L (98-107); Globulin 2.5 g/dL (2.4-3.5); Glucose 81 mg/dL (83-110); Lipase 9 U/L (8-78); Potassium 4.8 mmol/L (3.5-5.1); Protein, Total 5.5 g/dL (5.8-8.1); Sodium 141 mmol/L (136-145)
[2020-06-21 15:33] LABS: CKMB 2.3 ng/mL (0-6.6)
[2020-06-21] MEDS ORDERED: Pantoprazole 40 MG VIAL ONE (15:42)
[2020-06-21] MEDS ORDERED: Acetaminophen 650 MG Suppository PR PRN (17:51)
[2020-06-21 18:08] LABS: Troponin I 0.016 ng/mL (< 0.028)
[2020-06-21 19:02] VITALS: BMI 28.0
[2020-06-21] MEDS ORDERED: Phytonadione 10 MG in Sodium Chloride 0.9% 50 ML IVPB SCH (19:15)
[2020-06-21 19:39] LABS: Hemoglobin 9.3 g/dL (14.0-18.0)
[2020-06-21 19:53] LABS: Lactic Acid 2.6 mmol/L (0.5-2.2)
[2020-06-21] MEDS: Acetaminophen 325 MG TAB PO PRN (19:56)
[2020-06-21] MEDS: Pantoprazole 80 MG in Sodium Chloride 0.9% 100 ML IVPB SCH (21:28)
[2020-06-21] MEDS ORDERED: Ibuprofen 200 MG TAB PO SCH (22:00)
[2020-06-21 23:11] LABS: Hemoglobin 7.7 g/dL (14.0-18.0)
[2020-06-21 23:27] LABS: Lactic Acid 1.2 mmol/L (0.5-2.2)
[2020-06-22] MEDS ORDERED: Metoprolol Tartrate 5 MG/5 ML VIAL IVP SCH (05:00)
[2020-06-22 06:08] LABS: Hemoglobin 8.7 g/dL (14.0-18.0)
[2020-06-22 06:10] LABS: #Eosinphils 0.1 thou/uL (0.0-0.7); #Lymphocytes 1.7 thou/uL (1.20-3.40); #Monocytes 0.8 thou/uL (0.11-0.59); #Neutrophils 6.8 thou/uL (1.40-6.50); %Basophils 0.1 % (0.0-1.0); %Lymphocytes 17.7 % (21.0-51.0); %Monocytes 8.8 % (0.0-10.0); %Neutrophils 72.5 % (42.0-75.0); Hemoglobin 8.6 g/dL (14.0-18.0); Mean Corpuscular HGB CONC 33.8 g/dL (32.0-36.0); Mean Corpuscular Hemoglobin 29.6 pg (27.0-31.0); Mean Corpuscular Volume 87.8 fL (78.0-98.0); Mean Platelet Volume 6.9 fL (7.4-10.4); Platelet Count 256 thou/uL (130-400); RBC Distribution Width 16.1 % (11.5-14.5); Red Blood Cell (RBC) Count 2.91 mill/uL (4.70-6.10); White Blood Cell (WBC) Count 9.5 thou/uL (4.8-10.8)
[2020-06-22 06:15] LABS: INR-International Normal Ratio 1.3; PTT 42.4 sec (22.9-36.1); Prothrombin Time 16.1 sec (12.0-14.7)
[2020-06-22 06:41] LABS: ALT (SGPT) 15 U/L (8-55); AST (SGOT) 29 U/L (5-34); Albumin 2.9 g/dL (3.4-4.8); Alkaline Phosphatase 78 U/L (40-110); Anion Gap 10 mmol/L (10-20); BUN (Urea Nitrogen) 28 mg/dL (8.4-25.7); Bilirubin, Total 1.4 mg/dL (0.2-1.2); Calc. Creatinine Clearance 112 mL/min (70-130); Calcium 8.1 mg/dL (7.8-10.44); Carbon Dioxide 22 mmol/L (23-31); Chloride 113 mmol/L (98-107); Globulin 2.5 g/dL (2.4-3.5); Glucose 95 mg/dL (83-110); Potassium 3.7 mmol/L (3.5-5.1); Protein, Total 5.4 g/dL (5.8-8.1); Sodium 141 mmol/L (136-145)
[2020-06-22] MEDS: Pantoprazole 80 MG in Sodium Chloride 0.9% 100 ML IVPB SCH (06:45)
[2020-06-22] MEDS: Digoxin 0.125 MG TAB PO SCH (08:41)
[2020-06-22 09:11] LABS: SARS-CoV-2 PCR by NAA Not Detected (NotDetected)
[2020-06-22 10:14] LABS: Hemoglobin 8.4 g/dL (14.0-18.0)
[2020-06-22] MEDS ORDERED: Benzocaine 20% Spray 60 ML CAN ONE (11:35)
[2020-06-22] MEDS ORDERED: PROPOFOL 200 MG/20 ML VIAL ONE (11:48)
[2020-06-22] MEDS: Lorazepam 1 MG TAB PO PRN (16:19)
[2020-06-22] MEDS: Acetaminophen 325 MG TAB PO PRN (17:49)
[2020-06-22] MEDS ORDERED: Lorazepam 2 MG/ML VIAL SLOW IVP PRN (17:50)
[2020-06-22] MEDS ORDERED: Metoprolol Tartrate 5 MG/5 ML VIAL IVP PRN (17:51)
[2020-06-22] MEDS: Piperacillin/Tazobactam 3.375 GM in Sodium Chloride 0.9% 100 ML IVPB SCH (18:03)
[2020-06-22 19:06] LABS: Platelet Count 256 thou/uL (130-400)
[2020-06-22] MEDS ORDERED: Diltiazem HCl 125 MG, Admixture Fee 1 EACH in Sodium Chloride 0.9% 100 ML IVPB SCH (19:30)
[2020-06-22] MEDS: Atorvastatin Calcium 40 MG TAB PO SCH (22:19)
[2020-06-22] MEDS: Latanoprost 0.005% Ophth Soln 2.5 ml Bottle EA EYE SCH (22:19)
[2020-06-22] MEDS: Pantoprazole 40 MG VIAL IVP SCH (22:20)
[2020-06-22] MEDS: traZODone HCl 150 MG TAB PO SCH (22:24)
[2020-06-23] MEDS: Piperacillin/Tazobactam 3.375 GM in Sodium Chloride 0.9% 100 ML IVPB SCH ×3 (01:48→18:07)
[2020-06-23] MEDS: Lorazepam 1 MG TAB PO PRN (02:20)
[2020-06-23] MEDS: Acetaminophen 325 MG TAB PO PRN (02:20)
[2020-06-23 03:52] LABS: #Eosinphils 0.1 thou/uL (0.0-0.7); #Lymphocytes 1.1 thou/uL (1.20-3.40); #Monocytes 0.6 thou/uL (0.11-0.59); #Neutrophils 7.6 thou/uL (1.40-6.50); %Basophils 0.5 % (0.0-1.0); %Eosinophils 1.1 % (0.0-10.0); %Lymphocytes 11.2 % (21.0-51.0); %Monocytes 6.4 % (0.0-10.0); %Neutrophils 80.8 % (42.0-75.0); Hemoglobin 7.1 g/dL (14.0-18.0); Mean Corpuscular Volume 88.2 fL (78.0-98.0); Mean Platelet Volume 6.9 fL (7.4-10.4); Platelet Count 228 thou/uL (130-400); RBC Distribution Width 16.7 % (11.5-14.5); Red Blood Cell (RBC) Count 2.35 mill/uL (4.70-6.10); White Blood Cell (WBC) Count 9.5 thou/uL (4.8-10.8)
[2020-06-23 04:11] LABS: Anion Gap 10 mmol/L (10-20); BUN (Urea Nitrogen) 16 mg/dL (8.4-25.7); Calc. Creatinine Clearance 103 mL/min (70-130); Calcium 7.7 mg/dL (7.8-10.44); Carbon Dioxide 21 mmol/L (23-31); Chloride 112 mmol/L (98-107); Glucose 104 mg/dL (83-110); Potassium 3.3 mmol/L (3.5-5.1); Sodium 140 mmol/L (136-145)
[2020-06-23] MEDS: Amlodipine 5 MG TAB PO SCH (09:36)
[2020-06-23] MEDS: Digoxin 0.125 MG TAB PO SCH (09:37)
[2020-06-23] MEDS: Furosemide 20 MG TAB PO SCH ×2 (09:37→15:00)
[2020-06-23] MEDS: Pantoprazole 40 MG VIAL IVP SCH ×2 (09:38→21:23)
[2020-06-23 16:26] LABS: Hemoglobin 6.9 g/dL (14.0-18.0)
[2020-06-23] MEDS ORDERED: GoLYTELY 4,000 ml Bottle PO SCH (17:00)
[2020-06-23] MEDS: traZODone HCl 150 MG TAB PO SCH (21:22)
[2020-06-23] MEDS: Atorvastatin Calcium 40 MG TAB PO SCH (21:22)
[2020-06-23] MEDS: Latanoprost 0.005% Ophth Soln 2.5 ml Bottle EA EYE SCH (21:23)
[2020-06-23] MEDS: Amiodarone 450 MG, Admixture Fee 1 EACH in Dextrose 5% in Water 250 ML IVPB SCH (23:20)
[2020-06-23 23:24] LABS: #Eosinphils 0.2 thou/uL (0.0-0.7); #Lymphocytes 1.6 thou/uL (1.20-3.40); #Monocytes 0.5 thou/uL (0.11-0.59); #Neutrophils 6.3 thou/uL (1.40-6.50); %Basophils 0.3 % (0.0-1.0); %Eosinophils 2.3 % (0.0-10.0); %Lymphocytes 18.8 % (21.0-51.0); %Monocytes 6.3 % (0.0-10.0); %Neutrophils 72.3 % (42.0-75.0); Hemoglobin 7.3 g/dL (14.0-18.0); Mean Corpuscular HGB CONC 33.4 g/dL (32.0-36.0); Mean Corpuscular Hemoglobin 29.7 pg (27.0-31.0); Mean Corpuscular Volume 88.9 fL (78.0-98.0); Mean Platelet Volume 6.6 fL (7.4-10.4); Platelet Count 234 thou/uL (130-400); RBC Distribution Width 17.1 % (11.5-14.5); Red Blood Cell (RBC) Count 2.45 mill/uL (4.70-6.10); White Blood Cell (WBC) Count 8.7 thou/uL (4.8-10.8)
[2020-06-23] MEDS: Amiodarone 150 MG, Admixture Fee 1 EACH in Dextrose 5% in Water 100 ML IVPB SCH (23:39)
[2020-06-23 23:43] LABS: Anion Gap 15 mmol/L (10-20); BUN (Urea Nitrogen) 11 mg/dL (8.4-25.7); Calc. Creatinine Clearance 94 mL/min (70-130); Calcium 7.5 mg/dL (7.8-10.44); Carbon Dioxide 20 mmol/L (23-31); Chloride 109 mmol/L (98-107); Glucose 100 mg/dL (83-110); Magnesium 1.6 mg/dL (1.6-2.6); Potassium 3.1 mmol/L (3.5-5.1); Sodium 141 mmol/L (136-145)
[2020-06-23 23:46] LABS: Troponin I 0.162 ng/mL (< 0.028)
[2020-06-24] MEDS ORDERED: Amiodarone 150 MG in Dextrose 5% in Water 100 ML IVPB SCH (00:45)
[2020-06-24] MEDS ORDERED: Potassium Chloride 20 MEQ TAB PO SCH (00:45)
[2020-06-24] MEDS: Amiodarone 150 MG, Admixture Fee 1 EACH in Dextrose 5% in Water 100 ML IVPB SCH (00:52)
[2020-06-24] MEDS ORDERED: MAGNESIUM IVPB SCH (01:00)
[2020-06-24] MEDS: Potassium Chloride 20 MEQ in Premix Bag 1 BAG IVPB SCH ×2 (01:12→05:16)
[2020-06-24 02:50] LABS: Anion Gap 15 mmol/L (10-20); BUN (Urea Nitrogen) 10 mg/dL (8.4-25.7); Calc. Creatinine Clearance 98 mL/min (70-130); Calcium 7.3 mg/dL (7.8-10.44); Carbon Dioxide 19 mmol/L (23-31); Chloride 109 mmol/L (98-107); Glucose 102 mg/dL (83-110); Potassium 3.1 mmol/L (3.5-5.1); Sodium 140 mmol/L (136-145)
[2020-06-24 02:52] LABS: Troponin I 0.157 ng/mL (< 0.028)
[2020-06-24] MEDS: Piperacillin/Tazobactam 3.375 GM in Sodium Chloride 0.9% 100 ML IVPB SCH ×3 (04:20→17:35)
[2020-06-24 06:56] LABS: #Eosinphils 0.3 thou/uL (0.0-0.7); #Lymphocytes 1.6 thou/uL (1.20-3.40); #Monocytes 0.5 thou/uL (0.11-0.59); %Basophils 0.3 % (0.0-1.0); %Eosinophils 4.8 % (0.0-10.0); %Lymphocytes 24.2 % (21.0-51.0); %Monocytes 8.3 % (0.0-10.0); %Neutrophils 62.4 % (42.0-75.0); Mean Corpuscular HGB CONC 32.7 g/dL (32.0-36.0); Mean Corpuscular Hemoglobin 29.3 pg (27.0-31.0); Mean Corpuscular Volume 89.7 fL (78.0-98.0); Mean Platelet Volume 6.6 fL (7.4-10.4); Platelet Count 230 thou/uL (130-400); RBC Distribution Width 16.8 % (11.5-14.5); Red Blood Cell (RBC) Count 2.39 mill/uL (4.70-6.10); White Blood Cell (WBC) Count 6.5 thou/uL (4.8-10.8)
[2020-06-24] MEDS: Amiodarone 450 MG, Admixture Fee 1 EACH in Dextrose 5% in Water 250 ML IVPB SCH ×2 (06:56→21:58)
[2020-06-24] MEDS: Amlodipine 5 MG TAB PO SCH (08:23)
[2020-06-24] MEDS: Digoxin 0.125 MG TAB PO SCH (08:24)
[2020-06-24] MEDS: Pantoprazole 40 MG VIAL IVP SCH ×2 (08:24→20:50)
[2020-06-24] MEDS ORDERED: Midazolam HCl 2 mg/2 ml Vial ONE (10:00)
[2020-06-24] MEDS ORDERED: Ketamine 50 MG/ML (10ML VIAL) ONE (10:00)
[2020-06-24] MEDS ORDERED: PHENYLEPHRINE-NS 100 MCG/ML 10 ML SYRINGE ONE (10:01)
[2020-06-24] MEDS: Furosemide 20 MG TAB PO SCH ×2 (12:17→14:12)
[2020-06-24 13:02] LABS: Hemoglobin 7.9 g/dL (14.0-18.0); Platelet Count 252 thou/uL (130-400)
[2020-06-24] MEDS: Dronedarone HCl 400 MG TAB PO SCH (17:34)
[2020-06-24] MEDS: HYDROcodone/Acetaminophen 10/325 mg Tablet PO PRN ×2 (17:37→23:53)
[2020-06-24] MEDS: Latanoprost 0.005% Ophth Soln 2.5 ml Bottle EA EYE SCH (20:49)
[2020-06-24] MEDS: Atorvastatin Calcium 40 MG TAB PO SCH (20:50)
[2020-06-24] MEDS: Acetaminophen 325 MG TAB PO PRN (23:11)
[2020-06-25] MEDS: Piperacillin/Tazobactam 3.375 GM in Sodium Chloride 0.9% 100 ML IVPB SCH ×3 (02:56→18:07)
[2020-06-25 04:00] LABS: #Eosinphils 0.2 thou/uL (0.0-0.7); #Lymphocytes 1.6 thou/uL (1.20-3.40); #Monocytes 1.1 thou/uL (0.11-0.59); #Neutrophils 5.8 thou/uL (1.40-6.50); %Basophils 0.3 % (0.0-1.0); %Eosinophils 2.7 % (0.0-10.0); %Lymphocytes 18.4 % (21.0-51.0); %Monocytes 11.9 % (0.0-10.0); %Neutrophils 66.6 % (42.0-75.0); Hemoglobin 7.6 g/dL (14.0-18.0); Mean Corpuscular HGB CONC 33.8 g/dL (32.0-36.0); Mean Corpuscular Hemoglobin 30.5 pg (27.0-31.0); Mean Corpuscular Volume 90.2 fL (78.0-98.0); Mean Platelet Volume 6.9 fL (7.4-10.4); Platelet Count 248 thou/uL (130-400); Red Blood Cell (RBC) Count 2.49 mill/uL (4.70-6.10); White Blood Cell (WBC) Count 8.8 thou/uL (4.8-10.8)
[2020-06-25 04:17] LABS: Anion Gap 14 mmol/L (10-20); BUN (Urea Nitrogen) 8 mg/dL (8.4-25.7); Calc. Creatinine Clearance 95 mL/min (70-130); Calcium 7.3 mg/dL (7.8-10.44); Carbon Dioxide 19 mmol/L (23-31); Chloride 106 mmol/L (98-107); Glucose 106 mg/dL (83-110); Potassium 3.6 mmol/L (3.5-5.1); Sodium 135 mmol/L (136-145)
[2020-06-25] MEDS: Digoxin 0.125 MG TAB PO SCH (09:07)
[2020-06-25] MEDS: Dronedarone HCl 400 MG TAB PO SCH ×2 (09:07→16:16)
[2020-06-25] MEDS: Amlodipine 5 MG TAB PO SCH (09:10)
[2020-06-25] MEDS: Pantoprazole 40 MG VIAL IVP SCH (09:10)
[2020-06-25] MEDS: Furosemide 20 MG TAB PO SCH ×2 (09:10→14:17)
[2020-06-25] MEDS: HYDROcodone/Acetaminophen 10/325 mg Tablet PO PRN (09:17)
[2020-06-25] MEDS ORDERED: Furosemide 20 MG/2 ML VIAL SLOW IVP SCH (16:15)
[2020-06-25] MEDS: Acetaminophen 325 MG TAB PO PRN (16:16)
[2020-06-25] MEDS ORDERED: Digoxin 0.5 MG/2 ML AMP SLOW IVP SCH (19:00)
[2020-06-25] MEDS ORDERED: Sodium Chloride 0.9% 250 ML 250 ML IVPB SCH (19:00)
[2020-06-25] MEDS: Atorvastatin Calcium 40 MG TAB PO SCH (20:07)
[2020-06-25] MEDS: Latanoprost 0.005% Ophth Soln 2.5 ml Bottle EA EYE SCH (20:07)
[2020-06-26] MEDS: Piperacillin/Tazobactam 3.375 GM in Sodium Chloride 0.9% 100 ML IVPB SCH ×2 (02:09→08:49)
[2020-06-26 03:41] LABS: #Eosinphils 0.3 thou/uL (0.0-0.7); #Lymphocytes 1.7 thou/uL (1.20-3.40); #Monocytes 1.1 thou/uL (0.11-0.59); #Neutrophils 6.1 thou/uL (1.40-6.50); %Basophils 0.3 % (0.0-1.0); %Eosinophils 3.5 % (0.0-10.0); %Lymphocytes 18.2 % (21.0-51.0); %Monocytes 11.6 % (0.0-10.0); %Neutrophils 66.4 % (42.0-75.0); Anion Gap 15 mmol/L (10-20); BUN (Urea Nitrogen) 7 mg/dL (8.4-25.7); Calc. Creatinine Clearance 96 mL/min (70-130); Calcium 7.5 mg/dL (7.8-10.44); Carbon Dioxide 21 mmol/L (23-31); Chloride 102 mmol/L (98-107); Glucose 95 mg/dL (83-110); Hemoglobin 8.2 g/dL (14.0-18.0); Mean Corpuscular Hemoglobin 29.9 pg (27.0-31.0); Mean Corpuscular Volume 90.3 fL (78.0-98.0); Mean Platelet Volume 7.4 fL (7.4-10.4); Platelet Count 311 thou/uL (130-400); Potassium 3.3 mmol/L (3.5-5.1); RBC Distribution Width 17.1 % (11.5-14.5); Red Blood Cell (RBC) Count 2.73 mill/uL (4.70-6.10); Sodium 135 mmol/L (136-145); White Blood Cell (WBC) Count 9.2 thou/uL (4.8-10.8)
[2020-06-26] MEDS ORDERED: Mag-Al 1200 mg/1200 mg/30 ML UDCUP PO SCH (04:30)
[2020-06-26] MEDS: Digoxin 0.125 MG TAB PO SCH (08:49)
[2020-06-26] MEDS: Furosemide 20 MG/2 ML VIAL SLOW IVP SCH (08:49)
[2020-06-26] MEDS: Dronedarone HCl 400 MG TAB PO SCH ×2 (08:49→17:45)
[2020-06-26] MEDS: Amlodipine 5 MG TAB PO SCH (08:49)
[2020-06-26] MEDS ORDERED: Digoxin 0.5 MG/2 ML AMP SLOW IVP SCH (18:00)
[2020-06-26] MEDS: Latanoprost 0.005% Ophth Soln 2.5 ml Bottle EA EYE SCH (20:37)
[2020-06-26] MEDS: traZODone HCl 150 MG TAB PO PRN (20:37)
[2020-06-26] MEDS: Atorvastatin Calcium 40 MG TAB PO SCH (20:37)
[2020-06-27 03:53] LABS: #Eosinphils 0.3 thou/uL (0.0-0.7); #Lymphocytes 1.5 thou/uL (1.20-3.40); #Monocytes 0.9 thou/uL (0.11-0.59); #Neutrophils 5.1 thou/uL (1.40-6.50); %Basophils 0.3 % (0.0-1.0); %Eosinophils 3.8 % (0.0-10.0); %Lymphocytes 19.4 % (21.0-51.0); %Monocytes 11.5 % (0.0-10.0); %Neutrophils 64.9 % (42.0-75.0); Hemoglobin 8.4 g/dL (14.0-18.0); Mean Corpuscular HGB CONC 33.5 g/dL (32.0-36.0); Mean Corpuscular Hemoglobin 30.7 pg (27.0-31.0); Mean Corpuscular Volume 91.7 fL (78.0-98.0); Mean Platelet Volume 7.3 fL (7.4-10.4); Platelet Count 343 thou/uL (130-400); Red Blood Cell (RBC) Count 2.72 mill/uL (4.70-6.10); White Blood Cell (WBC) Count 7.8 thou/uL (4.8-10.8)
[2020-06-27 04:25] LABS: Anion Gap 15 mmol/L (10-20); BUN (Urea Nitrogen) 7 mg/dL (8.4-25.7); Calc. Creatinine Clearance 98 mL/min (70-130); Calcium 7.8 mg/dL (7.8-10.44); Carbon Dioxide 20 mmol/L (23-31); Chloride 105 mmol/L (98-107); Glucose 91 mg/dL (83-110); Potassium 3.4 mmol/L (3.5-5.1); Sodium 137 mmol/L (136-145)
[2020-06-27] MEDS: Furosemide 20 MG/2 ML VIAL SLOW IVP SCH (09:26)
[2020-06-27] MEDS: Amlodipine 5 MG TAB PO SCH (09:26)
[2020-06-27] MEDS: Dronedarone HCl 400 MG TAB PO SCH ×2 (09:26→17:20)
[2020-06-27] MEDS: Digoxin 0.125 MG TAB PO SCH (09:26)
[2020-06-27] MEDS ORDERED: Colchicine 0.6 MG TAB PO SCH (19:15)
[2020-06-27] MEDS: Atorvastatin Calcium 40 MG TAB PO SCH (21:06)
[2020-06-27] MEDS: traZODone HCl 150 MG TAB PO PRN (21:06)
[2020-06-27] MEDS: Latanoprost 0.005% Ophth Soln 2.5 ml Bottle EA EYE SCH (21:07)
[2020-06-28] MEDS ORDERED: Colchicine 0.6 MG TAB PO SCH (09:00)
[2020-06-28] MEDS: Dronedarone HCl 400 MG TAB PO SCH (09:40)
[2020-06-28] MEDS: Digoxin 0.125 MG TAB PO SCH (09:40)
[2020-06-28] MEDS: Amlodipine 5 MG TAB PO SCH (09:40)
[2020-06-28 11:18] VITALS: TEMP 98.1
[2020-06-28 13:35] VITALS: BP 100/51
== END 2020-06-28 14:52 | disposition home or self-care (01) | DRG 377 ==
LOC: ERS 13:32 → 2NO 16:14 → IMCU/EMU 06-22 19:47
PROVIDERS: ADMIT Internal Medicine; ATTEND Internal Medicine
PROC: 30233K1 Transfusion of Nonautologous Frozen Plasma into Peripheral Vein, Percutaneous Approach (ICD-10-PCS; 2020-06-21)
PROC: 0DJ08ZZ Inspection of Upper Intestinal Tract, Via Natural or Artificial Opening Endoscopic (ICD-10-PCS; principal; 2020-06-22)
PROC: 30233N1 Transfusion of Nonautologous Red Blood Cells into Peripheral Vein, Percutaneous Approach (ICD-10-PCS; 2020-06-22)
PROC: 0DJD8ZZ Inspection of Lower Intestinal Tract, Via Natural or Artificial Opening Endoscopic (ICD-10-PCS; 2020-06-24)
DX: K25.4 Chronic or unspecified gastric ulcer with hemorrhage (principal); J96.21 Acute and chronic respiratory failure with hypoxia; D62 Acute posthemorrhagic anemia; I10 Essential (primary) hypertension; Z20.822 Contact with and (suspected) exposure to COVID-19; K21.9 Gastro-esophageal reflux disease without esophagitis; E78.5 Hyperlipidemia, unspecified; Z96.649 Presence of unspecified artificial hip joint; F10.10 Alcohol abuse, uncomplicated; R79.1 Abnormal coagulation profile; R77.8 Other specified abnormalities of plasma proteins; K44.9 Diaphragmatic hernia without obstruction or gangrene; K57.30 Diverticulosis of large intestine without perforation or abscess without bleeding; I48.0 Paroxysmal atrial fibrillation; J84.10 Pulmonary fibrosis, unspecified; I08.3 Combined rheumatic disorders of mitral, aortic and tricuspid valves; Z86.16 Personal history of COVID-19; Z79.899 Other long term (current) drug therapy; Z79.01 Long term (current) use of anticoagulants; Z88.1 Allergy status to other antibiotic agents
CPT/HCPCS: 36415; 36416; 36430; 71045; 80048; 80053; 81003; 82274; 82550; 82553; 83605; 83690; 83735; 83880; 84484; 85025; 85610; 85730; 86850; 86900; 86901; 87040; 87635; 93005; 93010; 93306; 96374; C9113; J0282; J1160; J1940; J2060; J2250; J2543; J2704; J3430; J3475; J3480; J3490; J7070; P9016; P9059; U0003; U0005

== ENCOUNTER 2024-05-12 17:42 | Inpatient (IN) | payer MEDICARE ==
[2024-05-12 21:19] VITALS: BMI 28.0
[2024-05-12] MEDS ORDERED: Methocarbamol 500 MG TAB PO PRN (22:42)
[2024-05-12] MEDS ORDERED: traMADol HCl 50 MG TAB PO PRN (22:42)
[2024-05-12] MEDS ORDERED: Calcium Carbonate 500 MG ChewTAB PO PRN (22:53)
[2024-05-12] MEDS ORDERED: Acetaminophen 325 MG TAB PO PRN (22:53)
[2024-05-12] MEDS ORDERED: Acetaminophen 650 MG Suppository PR PRN (22:53)
[2024-05-12] MEDS ORDERED: Ondansetron ODT 4 MG TAB PO PRN (22:53)
[2024-05-13 05:08] LABS: #Basophils 0.03 10x3/uL (0.0-0.2); %Basophils 0.3 % (0.0-1.0); %Eosinophils 0.4 % (0.0-10.0); %Lymphocytes 12.7 % (21.0-51.0); %Monocytes 10.7 % (0.0-10.0); %Neutrophils 75.3 % (42.0-75.0); Hematocrit 37.6 % (42.0-52.0); Hemoglobin 12.4 g/dL (14.0-18.0); Mean Corpuscular Volume 87.9 fL (78.0-98.0); Mean Platelet Volume 10.7 fL (7.4-10.4); Platelet Count 275 10x3/uL (130-400); RBC Distribution Width 15.4 % (11.5-14.5); Red Blood Cell (RBC) Count 4.28 mill/uL (4.70-6.10)
[2024-05-13 05:19] LABS: ALT (SGPT) 16 U/L (Less than 45); AST (SGOT) 36 U/L (11-34); Albumin 2.7 g/dL (3.1-4.5); Alkaline Phosphatase 110 U/L (40-110); Anion Gap 15 mmol/L (10-20); BUN (Urea Nitrogen) 10 mg/dL (8.4-25.7); Bilirubin, Total 0.9 mg/dL (0.3-1.2); Calc. Creatinine Clearance 92 mL/min (70-130); Calcium 8.7 mg/dL (7.8-10.44); Carbon Dioxide 21 mmol/L (23-31); Chloride 100 mmol/L (98-107); Estimated GFR 90; Globulin 3.7 g/dL (2.4-3.5); Glucose 87 mg/dL (83-110); Protein, Total 6.4 g/dL (5.8-8.1); Sodium 132 mmol/L (136-145)
[2024-05-13] MEDS: Amlodipine 5 MG TAB PO SCH (10:08)
[2024-05-13] MEDS: Digoxin 0.125 MG TAB PO SCH (10:09)
[2024-05-13] MEDS: Metoprolol Succinate XL 50 MG ER.TAB PO SCH (10:09)
[2024-05-13] MEDS: Apixaban 5 MG TAB PO SCH (10:09)
[2024-05-13] MEDS: Dronedarone HCl 400 MG TAB PO SCH (10:09)
[2024-05-13] MEDS: Colchicine 0.6 MG TAB PO SCH (10:09)
[2024-05-13] MEDS: Pantoprazole 40 MG DR.TAB PO SCH (10:09)
[2024-05-13] MEDS: FLU (Fluad Triv) TS24-25 (65UP)/MF59C/PF 45 MCG/0.5 ML Syringe IM ONE (12:45)
[2024-05-13] MEDS: Ondansetron PF 4 MG/2 ML Vial IVP PRN (15:41)
[2024-05-13] MEDS: traZODone HCl 50 MG TAB PO SCH (20:55)
[2024-05-13] MEDS: Latanoprost 0.005% Ophth Soln 2.5 ml Bottle EA EYE SCH (20:55)
[2024-05-13] MEDS: Atorvastatin Calcium 20 MG TAB PO SCH (20:55)
[2024-05-14 05:57] LABS: Anion Gap 12 mmol/L (10-20); BUN (Urea Nitrogen) 8 mg/dL (8.4-25.7); Calc. Creatinine Clearance 94 mL/min (70-130); Calcium 8.5 mg/dL (7.8-10.44); Carbon Dioxide 23 mmol/L (23-31); Chloride 101 mmol/L (98-107); Estimated GFR 91; Glucose 103 mg/dL (83-110); Potassium 3.7 mmol/L (3.5-5.1); Sodium 132 mmol/L (136-145)
[2024-05-14 13:11] VITALS: BP 116/59; TEMP 98.1
== END 2024-05-14 15:00 | disposition home or self-care (01) | DRG 948 ==
LOC: INTOOBSV 21:02 → 2NO 21:02 → OBSVTOIN 05-13 13:40
PROVIDERS: ADMIT Family Medicine; ATTEND Internal Medicine
DX: R79.89 Other specified abnormal findings of blood chemistry (principal); E87.1 Hypo-osmolality and hyponatremia; R53.1 Weakness; I48.0 Paroxysmal atrial fibrillation; I25.10 Atherosclerotic heart disease of native coronary artery without angina pectoris; I10 Essential (primary) hypertension; E78.5 Hyperlipidemia, unspecified; F10.90 Alcohol use, unspecified, uncomplicated; D64.9 Anemia, unspecified; K21.9 Gastro-esophageal reflux disease without esophagitis; Z88.8 Allergy status to other drugs, medicaments and biological substances; Z95.0 Presence of cardiac pacemaker; Z95.5 Presence of coronary angioplasty implant and graft; Z79.899 Other long term (current) drug therapy
CPT/HCPCS: 36415; 80048; 80053; 84484; 85025; 94760; G0378; J2405